=== PATIENT | male | born 1950 | race Caucasian/White ===

== ENCOUNTER 2018-03-02 19:50 | Emergency (ER) | payer MEDICARE, OTHER ==
[2018-03-02] MEDS ORDERED: SODIUM CHLORIDE 0.9% 1000ML 1,000 ML IVS ONE (19:51)
[2018-03-02] MEDS ORDERED: SODIUM CHLORIDE 0.9% 1000ML 1,000 ML IVS PRN (19:57)
[2018-03-02] MEDS ORDERED: SODIUM CHLORIDE 0.9% (FLUSH) 10 ML SYG IV PRN (19:57)
[2018-03-02] MEDS ORDERED: MIDAZOLAM INJ 5 MG/5 ML VIAL ONE ×2 (20:00→23:05)
[2018-03-02] MEDS ORDERED: WATER FOR INJ 10 ML VIAL INJ ONE (20:00)
[2018-03-02] MEDS ORDERED: VECURONIUM BROMIDE 10 MG VIAL IV ONE (20:00)
[2018-03-02] MEDS ORDERED: FUROSEMIDE INJ 100 MG/10 ML VIAL IV ONE (20:05)
--- NOTE | 2018-03-02 20:09 | ED.PDOC ---
History of Present Illness - General Chief Complaint: Respiratory Problem Stated Complaint: shortness of breath, hypoxic Time Seen by Provider: 03/02/18 20:05 Source: patient, family Exam Limitations: clinical condition - History of Present Illness Initial Comments: patient comes in today via EMS for shortness of breath and hypoxia. Patient recently moved here from [facility] to live with his son. His 2 sons that are accompanying him state that he does not normally tell them much about his medical condition but they know that he was not taking care of himself. On Tuesday his son picked him up and noticed that he was acting a little strange but did not think much more than that. He had some cough and seemed to have a cold but otherwise was not complaining of anything. When asked the patient states he is not having any trouble breathing he had a urinary accident because his son took him to place where he had to wait to be able to go to the bathroom. Son states that he actually taken to the urgent care clinic just for a checkup knowing that he had medical problems and was found to be severely hypoxic. On room air here in emergency room patient was 79% on transfer from the stretcher to the bed. Patient is very confused and does not answer questions directly. He does state in the past he's had diabetes, heart disease , myocardial infarctions, and atrial fibrillation. He continues to state that he does not have any acute problems. Timing/Duration: days - 6 Severity: severe Activities at Onset: rest Improving Factors: rest Worsening Factors: movement Associated Symptoms: cough, edema Allergies/Adverse Reactions: Allergies NO KNOWN ALLERGY Allergy (Verified 03/02/18 19:57) Review of Systems - Review of Systems Review of Systems: 03/02/18 20:09 via systems is primarily per her son's as per HPI patient this time is altered and confused Constitutional: Denies: chills, fever EENTM: Denies: ear pain, nose pain, throat pain Respiratory: States: cough, orthopnea, short of breath. Denies: wheezing Cardiology: States: edema. Denies: chest pain, palpitations Gastrointestinal/Abdominal: States: diarrhea. Denies: abdominal pain, nausea, vomiting Genitourinary: States: frequency. Denies: dysuria Musculoskeletal: States: no symptoms reported Skin: States: no symptoms reported Neurological: States: see HPI, anxiety Past Medical History (General) - Patient Medical History Hx Cardiac Disorders: Yes Hx Congestive Heart Failure: No Hx Hypertension: Yes Hx Diabetes: Yes Family Medical History - Family History Father Family History: Unknown Physical Exam - Physical Exam General Appearance: Anxious, Obvious distress Eyes, Ears, Nose, Throat Exam: PERRL/EOMI, normal ENT inspection, TMs normal Neck: non-tender, full range of motion, supple, normal inspection Respiratory: decreased breath sounds, crackles - at bilateral bases Cardiovascular/Chest: regular rate, rhythm, systolic murmur Gastrointestinal/Abdominal: normal bowel sounds, non tender, soft, distended Extremity: swelling - 3+ pitting edema to mid thigh Neurologic: no motor/sensory deficits, alert Skin Exam: normal color Progress - Progress Progress: 03/02/18 20:55 03/02/18 19:57 Sodium Chloride 0.9% (Flush) [Saline Flush Syringe] 10 ml IV PRN PRN Sodium Chloride 0.9% 1000ML [Ns 1000 ml] 1,000 ml IVS .QD 03/02/18 19:58 IV Care:Saline Lock per Protoc QSHIFT Telemetry .ONCE EKG Assessment ONCE Pulse Oximetry Assessment DAILY 03/02/18 20:00 EKG STAT 03/02/18 20:10 BiPAP/CPAP Treatment DAILY 03/02/18 20:11 Catheter:Bruce QSHIFT Intake/Output Q2HX2,Q4HX2,QSHIFT 03/02/18 20:21 Piperacillin/Tazobactam [Zosyn] 3.375 gm Sodium Chloride 0.9% 100Ml [NS (NACL 0.9%) 100ml] 100 ml IVPB ONCE 03/02/18 20:35 URINALYSIS Stat 03/02/18 20:52 ABG [Arterial Blood Gas] Stat 03/02/18 21:00 Nystatin Powder 1 applic TOP QID 03/03/18 09:00 Pulse Ox Daily Laboratory Results WBC 9.8 K/mm3 (4.8-10.8) 03/02/18 20:00 RBC 5.36 M/mm3 (4.70-6.10) 03/02/18 20:00 Hgb 12.4 gm/dL (14.0-18.0) L 03/02/18 20:00 Hct 41.3 % (42.0-52.0) L 03/02/18 20:00 MCV 77.1 fl (80.0-94.0) L 03/02/18 20:00 MCH 23.1 pg (27.0-31.0) L 03/02/18 20:00 MCHC 30.1 g/dL (33.0-37.0) L 03/02/18 20:00 RDW 19.5 % (11.5-14.5) H 03/02/18 20:00 Plt Count 277 K/mm3 (130-400) 03/02/18 20:00 MPV 7.8 fl (7.40-10.4) 03/02/18 20:00 Absolute Neuts (auto) 8.10 K/uL (1.8-6.8) H 03/02/18 20:00 Absolute Lymphs (auto) 0.80 K/uL (1.0-3.4) L 03/02/18 20:00 Absolute Monos (auto) 0.90 K/uL (0.2-0.8) H 03/02/18 20:00 Absolute Eos (auto) 0.00 K/uL (0.0-0.4) 03/02/18 20:00 Absolute Basos (auto) 0.00 K/uL (0.0-0.1) 03/02/18 20:00 Neutrophils % 82.6 % (42.0-78.0) H 03/02/18 20:00 Lymphocytes % 8.2 % (20.0-50.0) L 03/02/18 20:00 Monocytes % 8.7 % (2.0-9.0) 03/02/18 20:00 Eosinophils % 0.1 % (1.0-5.0) L 03/02/18 20:00 Basophils % 0.4 % (0.0-2.0) 03/02/18 20:00 Normal RBC Morphology 4+aniso 3+microcytosis 3+hypochromia 03/02/18 20:00 Normal RBC Morphology 4+aniso 3+microcytosis 3+hypochromia 03/02/18 20:00 Normal RBC Morphology 4+aniso 3+microcytosis 3+hypochromia 03/02/18 20:00 PT 20.4 SECONDS (9.4-12.5) H* 03/02/18 20:00 INR 1.770 03/02/18 20:00 PTT (SP) 30.0 SECONDS (25.1-36.5) 03/02/18 20:00 D-Dimer, Quantitative 313 ng/mL (0-230) H* 03/02/18 20:00 pCO2 74 mmHg (35-48) H 03/02/18 20:00 pO2 88 mmHg (83-108) 03/02/18 20:00 HCO3 37.3 mmol/L 03/02/18 20:00 ABG pH 7.320 (7.35-7.45) L 03/02/18 20:00 ABG O2 Saturation 97.0 % (95.0-99.0) 03/02/18 20:00 ABG Base Excess 9.1 mmol/L 03/02/18 20:00 ABG Deoxyhemoglobin 2.9 % (0.0-5.0) 03/02/18 20:00 Oxyhemoglobin % 94.3 % (94.0-98.0) 03/02/18 20:00 Carboxyhemoglobin % 1.7 % (0.5-1.5) H 03/02/18 20:00 Methemoglobin % Sat 1.1 % (0.0-1.5) 03/02/18 20:00 Calc Total Hemoglobin 11.7 g/dL (13.5-17.5) L 03/02/18 20:00 Sodium 140 mmol/L (135-145) 03/02/18 20:00 Potassium 4.9 mmol/L (3.6-5.0) 03/02/18 20:00 Chloride 94 mmol/L (101-111) L 03/02/18 20:00 Carbon Dioxide 36 mmol/L (21-31) H 03/02/18 20:00 Anion Gap 14.9 (12-18) 03/02/18 20:00 BUN 95 mg/dL (7-18) H 03/02/18 20:00 Creatinine 2.09 mg/dL (0.6-1.3) H 03/02/18 20:00 BUN/Creatinine Ratio 45.5 (10-20) H 03/02/18 20:00 Random Glucose 146 mg/dL (70-105) H 03/02/18 20:00 Serum Osmolality 311.4 mOsm/L (275-295) H 03/02/18 20:00 Lactic Acid 1.6 mmol/L (0.5-2.2) 03/02/18 20:00 Calcium 8.7 mg/dL (8.4-10.2) 03/02/18 20:00 Total Bilirubin 0.8 mg/dL (0.2-1.0) 03/02/18 20:00 AST 29 IU/L (10-42) 03/02/18 20:00 ALT 68 IU/L (10-60) H 03/02/18 20:00 Alkaline Phosphatase 76 IU/L (42-121) 03/02/18 20:00 Creatine Kinase 111 IU/L (38-174) 03/02/18 20:00 CK-MB (CK-2) 3.4 ng/mL (0.0-4.4) 03/02/18 20:00 CK-MB (CK-2) % Not Reportable 03/02/18 20:00 Troponin I 0.14 ng/mL (0.01-0.05) H* 03/02/18 20:00 B-Natriuretic Peptide 1510.0 pg/ml (0-100) H* 03/02/18 20:00 Serum Total Protein 6.9 gm/dL (6.4-8.2) 03/02/18 20:00 Albumin 3.5 g/dl (3.2-5.5) 03/02/18 20:00 Globulin 3.4 gm/dL (2.3-3.5) 03/02/18 20:00 Albumin/Globulin Ratio 1.0 (1.1-1.9) L 03/02/18 20:00 03/02/18 21:56 Patient is tired and sleepy. Repeat ABG is 7.32/77.8/85/38.8. Discussed with patient and family that airway needs to be secured prior to transfer. Have called for surgery to stand by and anesthesia for assistance for possible difficult airway. Patient to be transferred after airway secured. 03/02/18 22:26 with surgery on standby for possible need for surgical airway, NAYELY Staton was able to intubate successfully on first try with [employer] vision device with a 7.5 ETT . It was secured at 21 at the lip with good color change, air flow on both sides of the chest that were equal, condensation in the tube and verification with chest x-ray. Transfer was then called for for need for ICU care on a ventilator. She was given succinylcholine for intubation and propofol. - Results/Orders Results/Orders: ABG # 1 : ph 7.32/pCO2 74.4/pO2 88/HCO3 37.3 on 3 L NC at arrival - EKG/XRAY/CT EKG: Sinus Comments: q waves in anterior leads, normal axis, no ST elevation or depression XRAY: chest Xray Comments: L consolidation with probable pleural effusion Procedures - Intubation Time of Intubation: 22:14 - by NAYELY Staton Intubation Method: orotracheal Tube Size (cm): 7.5 Medications: Succinylcholine Breath Sounds after Intubation: equal Intubation Complications: no complications Post Intubation Xray: Yes - good placement Departure - Departure Clinical Impression: Pneumonia Qualifiers: Pneumonia type: due to unspecified organism Laterality: left Lung location: lower lobe of lung Qualified Code(s): J18.1 - Lobar pneumonia, unspecified organism Congestive heart failure Qualifiers: Congestive heart failure type: unspecified congestive heart failure type Congestive heart failure chronicity: acute Qualified Code(s): I50.9 - Heart failure, unspecified Disposition: Transfer to Hospital Condition: Fair Departure Forms: ED Discharge - Pt. Copy, Patient Portal Self Enrollment Comments: Accepted by Dr. Contreras Villanueva at 2236 at [facility]
[2018-03-02] MEDS ORDERED: FUROSEMIDE INJ 40 MG/4 ML VIAL IV ONE (20:12)
--- NOTE | 2018-03-02 20:19 | RAD ---
EXAM DESCRIPTION: Chest,1 View CLINICAL HISTORY: shortness of breath COMPARISON: None. FINDINGS: Cardiac silhouette is obscured but probably enlarged. There is consolidation at the left lung base with a probable left pleural effusion. Detail is limited.. Right lung is clear. IMPRESSION: Left lung consolidation. Probable cardiomegaly. Electronically signed by: Jeremy Arreguin 03/02/2018 8:18 PM CDT
[2018-03-02] MEDS ORDERED: PIPERACILLIN/TAZOBACTAM 3.375 GM in SODIUM CHLORIDE 0.9% 100ML 100 ML IVPB ONE (20:21)
[2018-03-02] MEDS ORDERED: PIPERACILLIN/TAZOBACTAM 3.375 GM VIAL IVPB ONE (20:58)
[2018-03-02] MEDS ORDERED: SODIUM CHLORIDE 0.9% 100ML 100 ML IVPB ONE (20:59)
[2018-03-02] MEDS ORDERED: NYSTATIN POWDER 15GM BTTL TOP SCH (21:00)
[2018-03-02] MEDS ORDERED: ENOXAPARIN SODIUM 100 MG/ML SYG SUBCU ONE (21:19)
[2018-03-02] MEDS ORDERED: SUCCINYLCHOLINE CHLORIDE 200 MG/10 ML VIAL ONE (21:49)
[2018-03-02 22:01] VITALS: TEMP 98.5; O2SAT 97
[2018-03-02] MEDS ORDERED: PROPOFOL 200 MG/20 ML VIAL IV ONE (22:01)
[2018-03-02] MEDS ORDERED: MIDAZOLAM INJ 5 MG/5 ML VIAL IV ONE (22:50)
--- NOTE | 2018-03-02 22:57 | RAD ---
EXAM DESCRIPTION: Chest,1 View CLINICAL HISTORY: verify intubation placement COMPARISON: 03/02/2018 at 2002 hours FINDINGS: ET tube tip is at T3. Consolidation is again seen at the left lung base but aeration of both lungs is mildly improved. Heart remains enlarged. IMPRESSION: ET tube tip at T3. Electronically signed by: Jeremy Arreguin 03/02/2018 10:56 PM CDT
[2018-03-02 23:28] VITALS: BP 119/70
--- NOTE | 2018-03-03 10:03 | CONS ---
DATE OF CONSULTATION: 03/02/18 HISTORY OF PRESENT ILLNESS: The patient is a 67-year-old male who has just recently moved here from [place] to live with his son. He was brought in by ambulance with shortness of breath and hypoxia on examination. He does not really complain of chest pain, but he does complain of a cough and shortness of breath. PAST MEDICAL HISTORY: The past medical history is quite minimal, but he does know that he has: 1. Heart disease. 2. Diabetes. 3. History of atrial fibrillation and myocardial infarctions in the past. 4. Hypertension. CURRENT MEDICATIONS: Unknown. ALLERGIES: NO KNOWN DRUG ALLERGIES. SOCIAL HISTORY: The patient's son denies a history of smoking. REVIEW OF SYSTEMS: Unremarkable except for shortness of breath and cough. PHYSICAL EXAMINATION: GENERAL: The patient is awake with BiPAP in place. He seems to be resting easily at this point. NECK: He has quite a short neck with a significant amount of subcutaneous fat. His larynx is palpable, as are his clavicles and supraclavicular notch. LUNGS: He has decreased breath sounds, especially on the left. HEART: Regular rate. ABDOMEN: Appears benign. RADIOLOGY: Chest x-ray reveals a consolidation in the left lung base. LABORATORY: Normal white count with hemoglobin 12.4, 82% neutrophils and 237 platelets. BNP was quite elevated at 1510. Troponin I 0.14. CK-MB 3.4. Liver functions elevated with ALT 68. Potassium 4.9, creatinine 2.09, glucose 146. ASSESSMENT: 1. Dyspnea and hypoxia with possible consolidation in the left lung base. PLAN: I will prepare a tracheostomy tray for possible emergent tracheostomy if intubation by Anesthesia fails. #[id number] [facility]
== END 2018-03-02 23:15 | disposition short-term general hospital (02) ==
LOC: ER 19:50
DX: J18.1 Lobar pneumonia, unspecified organism (principal); I11.0 Hypertensive heart disease with heart failure; I50.9 Heart failure, unspecified; E11.9 Type 2 diabetes mellitus without complications; I25.2 Old myocardial infarction; I48.91 Unspecified atrial fibrillation; R41.0 Disorientation, unspecified

== ENCOUNTER → 2018-03-22 | Outpatient (CLI) | payer OTHER | LOC: YCFC.O 09:34 | DX: E11.9 Type 2 diabetes mellitus without complications (principal); I10 Essential (primary) hypertension ==

== ENCOUNTER 2018-04-24 12:53 | Emergency (ER) | payer OTHER ==
--- NOTE | 2018-04-24 13:13 | ED.PDOC ---
History of Present Illness - General Chief Complaint: General Stated Complaint: diaphoresis, dizziness Time Seen by Provider: 04/24/18 13:05 Source: patient Exam Limitations: no limitations Additional Information: HAS HH DUE TO RECENT HOSPITALIZATION IN [place] FOR PNEUMONIA AND HYPOXEMIA. WHILE NURSE WAS THERE TODAY PT BECAME WEAK, DIZZY AND DIAPHORETIC. WAS NOTED TO BE HYPOTENSIVE 60'S (S). WAS SEEN HERE FOR EVALUATION. - History of Present Illness Timing/Duration: unsure Severity: moderate Worsening Factors: nothing Associated Symptoms: diaphoresis, weakness Allergies/Adverse Reactions: Allergies NO KNOWN ALLERGY Allergy (Verified 03/02/18 19:57) Home Medications: Ambulatory Orders Levofloxacin [Levaquin] 750 mg PO DAILY #5 tablet 04/24/18 Review of Systems - Review of Systems Constitutional: Denies: chills, fever EENTM: States: no symptoms reported Respiratory: States: cough, other - COUGH MUCH BETTER AND CURRENTLY NON PRODUCTIVE. Denies: short of breath, wheezing Cardiology: Denies: chest pain, palpitations, syncope Gastrointestinal/Abdominal: Denies: abdominal pain, nausea, vomiting Genitourinary: States: no symptoms reported Musculoskeletal: States: no symptoms reported Skin: Denies: change in color Neurological: Denies: numbness, tingling, weakness Endocrine: States: no symptoms reported Hematologic/Lymphatic: States: no symptoms reported Past Medical History (General) - Patient Medical History Hx Asthma: No Hx Cardiac Disorders: Yes - AFIB Hx Congestive Heart Failure: No Hx Hypertension: Yes Hx Diabetes: Yes Surgical History: appendectomy - Vaccination History Hx Tetanus, Diphtheria Vaccination: Yes - Social History Hx Tobacco Use: No Hx Alcohol Use: No Family Medical History - Family History Father Family History: Unknown Physical Exam - Physical Exam General Appearance: Alert, No apparent distress, Obese Eye Exam: bilateral normal Ears, Nose, Throat: hearing grossly normal, normal ENT inspection Neck: non-tender, full range of motion, supple Respiratory: lungs clear, normal breath sounds Cardiovascular/Chest: regular rate, rhythm, no murmur Gastrointestinal/Abdominal: non tender, soft, no organomegaly Back Exam: normal inspection, no CVA tenderness, no vertebral tenderness Extremity: normal range of motion, non-tender, normal inspection Neurologic: alert, normal mood/affect Skin Exam: normal color, warm/dry, diaphoresis - SLIGHT Lymphatic: no adenopathy Progress - Progress Progress: 04/24/18 17:16 PT STABLE BUT WITH PERSISTENT LARGE L SIDED INFILTRATE. WILL GET CT. 04/24/18 20:26 ADVISED PT WITH HYPOTENSION, NO IMPROVEMENT OF INFILTRATE, AND ELEVATED LACTIC ACID HE SHOULD STAY. HE DECLINES STATES HE HAS THINGS AT HOME HE HAS TO DO. RISK VS BENEFITS OF LEAVING INCLUDING DISABILITY AND DISCUSSED, PT UNDERSTANDS AND ELECTED TO LEAVE. ADVISED TO F/U WITH DR RUFF IN AM, RETURN FOR PROBLEMS. WILL COVER WITH LEVAQUIN - EKG/XRAY/CT XRAY: chest - LARGE L SIDED INFILTRATE SIMILAR TO 02/22 CT: PULMONARY NODULE, SCARRING, Departure - Departure Clinical Impression: Acute kidney injury Pneumonia Qualifiers: Pneumonia type: due to unspecified organism Laterality: left Lung location: lower lobe of lung Qualified Code(s): J18.1 - Lobar pneumonia, unspecified organism Hypotension Qualifiers: Hypotension type: other hypotension type Qualified Code(s): I95.89 - Other hypotension Time of Disposition: 20:30 Disposition: Discharge to Home or Self Care Condition: Fair Departure Forms: ED Discharge - Pt. Copy, Patient Portal Self Enrollment Instructions: Pneumonia-Adult Referrals: Jas Ruff MD [Primary Care Provider] - 1-2 Weeks Prescriptions: Levofloxacin [Levaquin] 750 mg PO DAILY #5 tablet Home Medications: Ambulatory Orders Levofloxacin [Levaquin] 750 mg PO DAILY #5 tablet 04/24/18
--- NOTE | 2018-04-24 16:23 | RAD ---
EXAM DESCRIPTION: Chest,1 View CLINICAL HISTORY: HYPOTENSION, HX PNEUMONIA COMPARISON: 02 March 2018 TECHNIQUE: AP portable chest FINDINGS: Right chest is clear. The heart appears within range of normal. Persistent left basilar infiltrate is observed. IMPRESSION: A persistent left basilar infiltrate is observed. Further evaluation of this patient with CT might be considered. Electronically signed by: Cuauhtemoc Michel MD 04/24/2018 4:22 PM CDT
[2018-04-24 16:24] VITALS: O2SAT 95
--- NOTE | 2018-04-24 19:34 | CT ---
PROCEDURE: Chest w/o Contrast CLINICAL HISTORY: 68 years Male SHORTNESS OF BREATH COMPARISON: None. TECHNIQUE: Contiguous axial images obtained through the chest without IV contrast. Reformatted images obtained. This exam was performed according to our department optimization program which includes automated exposure control, adjustment of the mA and/or kv according to patient size and/or use of iterative reconstruction technique. FINDINGS: There are three nonobstructive right renal stones measuring up to 2 mm diameter. Bilateral exophytic cysts involve the kidneys and are incompletely imaged. There is a 2 mm nonobstructive left renal stone. There is mild enlargement of mediastinal lymph nodes. There is mild thickening of the right posterior pleura. There is atelectasis and scar involving the left lung, with irregular thickening of the left pleura. Trace pericardial fluid is present. There is a nodule measuring 5 mm at the left posterior lung base. The heart is mildly enlarged. No other acute abnormalities. IMPRESSION: No clear etiology for acute symptoms. Electronically signed by: Jeremy Arreguin 04/24/2018 7:32 PM CDT
[2018-04-24] MEDS ORDERED: levoFLOXacin 750MG IV 750 MG in PREMIX BAG 1 BAG IVPB ONE (20:13)
[2018-04-24 22:01] VITALS: BP 130/86; TEMP 98.2
== END 2018-04-24 22:02 | disposition home or self-care (01) ==
LOC: ER 12:53
DX: J18.1 Lobar pneumonia, unspecified organism (principal); I95.89 Other hypotension; N17.9 Acute kidney failure, unspecified; R42 Dizziness and giddiness; I48.91 Unspecified atrial fibrillation; I10 Essential (primary) hypertension; E11.9 Type 2 diabetes mellitus without complications
CPT/HCPCS: 36415; 71045; 71250; 80053; 83605; 85025; 93005; J1956

== ENCOUNTER → 2018-04-24 | Outpatient (CLI) | payer OTHER | LOC: YCFC.O 13:11 | DX: I11.0 Hypertensive heart disease with heart failure (principal); I50.32 Chronic diastolic (congestive) heart failure; I48.0 Paroxysmal atrial fibrillation ==

== ENCOUNTER → 2018-07-06 | Outpatient (CLI) | payer OTHER | LOC: BFHH 10:17 | PROVIDERS: ATTEND Family Medicine | DX: I11.0 Hypertensive heart disease with heart failure (principal); I50.32 Chronic diastolic (congestive) heart failure; E11.21 Type 2 diabetes mellitus with diabetic nephropathy; D50.9 Iron deficiency anemia, unspecified ==

== ENCOUNTER → 2018-07-11 | Outpatient (CLI) | payer OTHER | LOC: GMAL 19:26 | PROVIDERS: ATTEND Family Medicine | DX: D50.9 Iron deficiency anemia, unspecified (principal) ==

== ENCOUNTER → 2018-09-04 | Outpatient (CLI) | payer OTHER | LOC: GMAL 12:51 | PROVIDERS: ATTEND Family Medicine | DX: D50.8 Other iron deficiency anemias (principal) ==

== ENCOUNTER 2018-10-10 09:56 | Emergency (ER) | payer OTHER ==
--- NOTE | 2018-10-10 10:13 | ED.PDOC ---
History of Present Illness - General Stated Complaint: CHEST TIGHTNESS Time Seen by Provider: 10/10/18 10:09 Source: patient, EMS notes reviewed Additional Information: 68 YEAR OLD WHITE MALE [place] VET BROUGHT HERE FROM HOME FOR EVALUATION OF CHEST TIGHTNESS AND PALPITATIONS HE HAS BEEN DIAGNOSED WITH ATRIAL FIBRILLATION 4 YEARS AGO HE IS ON WARFARIN METOPROLOL HE HAS BEEN COMPLIANT WITH HIS MEDS HIS PCP IS DR QUEEN WHEN EMS ARRIVED HIS VENTRICULAR RATE WAS 150 -200 HE WAS GIVEN 20 MG OF CARDIZEM IV PRIOR TO ARRIVAL HE NOW HAS NO CHEST TIGHTNESS NO PALPITATIONS NO SHORTNESS OF BREATH AT THE TIME OF EXAM - History of Present Illness Timing/Duration: 1 hour Improving Factors: nothing Worsening Factors: nothing Associated Symptoms: chest pain Allergies/Adverse Reactions: Allergies NO KNOWN ALLERGY Allergy (Verified 03/02/18 19:57) Home Medications: Ambulatory Orders Aspirin [Aspirin Adult Low Dose] 81 mg PO DAILY 10/10/18 Buspar 10/10/18 Hydrochlorothiazide 10/10/18 Magnesium 10/10/18 Metformin HCl 1,000 mg PO BID 10/10/18 Metoprolol Tartrate 100 mg PO BID 10/10/18 Multiple Vitamins W/ Minerals [Multivitamin Adults] 1 tab PO DAILY 10/10/18 Omeprazole Magnesium [Prilosec Otc] 20 mg PO DAILY 10/10/18 Potassium 2 each PO DAILY 10/10/18 Review of Systems - Review of Systems Constitutional: States: no symptoms reported EENTM: States: no symptoms reported Respiratory: States: no symptoms reported Cardiology: States: see HPI Gastrointestinal/Abdominal: States: no symptoms reported Genitourinary: States: no symptoms reported Musculoskeletal: States: no symptoms reported Skin: States: no symptoms reported Neurological: States: no symptoms reported Endocrine: States: no symptoms reported Past Medical History (General) - Patient Medical History Hx Asthma: No Hx Cardiac Disorders: Yes Hx Congestive Heart Failure: No Hx Hypertension: Yes Hx Diabetes: Yes - Vaccination History Hx Tetanus, Diphtheria Vaccination: Yes - Social History Hx Tobacco Use: No Hx Alcohol Use: No Family Medical History - Family History Father Family History: Unknown Physical Exam - Physical Exam General Appearance: Alert, Anxious, Comfortable Eye Exam: bilateral normal Ears, Nose, Throat: hearing grossly normal, normal ENT inspection, normal pharynx Neck: non-tender, full range of motion, supple Respiratory: chest non-tender, lungs clear, normal breath sounds, no respiratory distress, no accessory muscle use Cardiovascular/Chest: normal peripheral pulses, regular rate, rhythm, no edema, no gallop Peripheral Pulses: radial,right: 2+ Gastrointestinal/Abdominal: normal bowel sounds, non tender, soft, no organomegaly, no pulsatile mass Back Exam: normal inspection, no CVA tenderness, no vertebral tenderness Neurologic: drop hammer setter up II-XII nml as tested, no motor/sensory deficits, alert, normal mood/affect, oriented x 3 Progress - Results/Orders Results/Orders: Laboratory Tests 10/10/18 10/10/18 10/10/18 10:15 10:17 10:17 WBC 8.5 RBC 5.66 Hgb 16.8 Hct 51.6 MCV 91.1 MCH 29.6 MCHC 32.5 L RDW 17.3 H Plt Count 194 MPV 8.6 Absolute Neuts (auto) 4.60 Absolute Lymphs (auto) 3.00 Absolute Monos (auto) 0.70 Absolute Eos (auto) 0.20 Absolute Basos (auto) 0.10 Neutrophils % 53.7 Lymphocytes % 34.9 Monocytes % 8.1 Eosinophils % 2.6 Basophils % 0.7 PT 24.8 H INR 2.50 H PTT (SP) 43.2 H Sodium 143 Potassium 3.5 L Chloride 99 L Carbon Dioxide 30 Anion Gap 17.5 BUN 33 H Creatinine 1.44 H BUN/Creatinine Ratio 22.9 H Random Glucose 203 H Serum Osmolality 298.0 H Calcium 9.9 Total Bilirubin 0.5 AST 33 ALT 41 Alkaline Phosphatase 79 Creatine Kinase CK-MB (CK-2) CK-MB (CK-2) % Troponin I Serum Total Protein 8.3 H Albumin 4.5 Globulin 3.8 H Albumin/Globulin Ratio 1.2 10/10/18 10:55 WBC RBC Hgb Hct MCV MCH MCHC RDW Plt Count MPV Absolute Neuts (auto) Absolute Lymphs (auto) Absolute Monos (auto) Absolute Eos (auto) Absolute Basos (auto) Neutrophils % Lymphocytes % Monocytes % Eosinophils % Basophils % PT INR PTT (SP) Sodium Potassium Chloride Carbon Dioxide Anion Gap BUN Creatinine BUN/Creatinine Ratio Random Glucose Serum Osmolality Calcium Total Bilirubin AST ALT Alkaline Phosphatase Creatine Kinase 103 CK-MB (CK-2) 3.8 CK-MB (CK-2) % Not Reportable Troponin I < 0.02 Serum Total Protein Albumin Globulin Albumin/Globulin Ratio 1 00 PM PT REMAINED COMFORTABLE WITHOUT ANY CHEST PAIN OR PALPITATIONS HIS HR STAYED AROUND 80-99 THROUGHOUT THE COURSE OF HIS STAY PATIENT WANTS TO GO ON HOME AND FOLLOW UP WITH PCP HE SHARED LOT OF HIS ANXIETY AND PTSD PROBLEMS FROM [place] I RECOMMENDED TO SEE A COUNSELLOR TO RETURN HERE IF HE DEVELOPS ANY CHEST PAIN - EKG/XRAY/CT Comments: ATRIAL FIBRILLATION OCCATIONAL PVCs NORMAL AXIS NO ACUTE CT INJURY OT [facility] Departure - Departure Clinical Impression: Chest pain, Hypertensive heart disease Time of Disposition: 13:13 Disposition: Discharge to Home or Self Care Condition: Good Diet: resume usual diet Referrals: GINNY QUEEN MD [facility] REF III [Primary Care Provider] - 1-2 Weeks Home Medications: Ambulatory Orders Aspirin [Aspirin Adult Low Dose] 81 mg PO DAILY 10/10/18 Buspar 10/10/18 Hydrochlorothiazide 10/10/18 Magnesium 10/10/18 Metformin HCl 1,000 mg PO BID 10/10/18 Metoprolol Tartrate 100 mg PO BID 10/10/18 Multiple Vitamins W/ Minerals [Multivitamin Adults] 1 tab PO DAILY 10/10/18 Omeprazole Magnesium [Prilosec Otc] 20 mg PO DAILY 10/10/18 Potassium 2 each PO DAILY 10/10/18 Additional Instructions: FOLLOW UP WITH YOUR
[2018-10-10 10:15] VITALS: TEMP 97.1
--- NOTE | 2018-10-10 10:50 | RAD ---
EXAM DESCRIPTION: Chest,1 View CLINICAL HISTORY: CHEST PAIN FINDINGS/ IMPRESSION: Comparison 04/24/2018 Cardiomegaly. Atherosclerotic aorta. Continued elevation of the left hemidiaphragm with a band of subsegmental atelectasis. Left costophrenic angle not well seen, compatible with pleural thickening seen on previous CT No pulmonary edema or diagnostic acute infiltrate Electronically signed by: Henry Davis MD 10/10/2018 10:48 AM [facility]
[2018-10-10 13:51] VITALS: BP 124/86; O2SAT 98
== END 2018-10-10 13:51 | disposition home or self-care (01) ==
LOC: ER 09:56
DX: R07.89 Other chest pain (principal); I11.9 Hypertensive heart disease without heart failure; I48.91 Unspecified atrial fibrillation; E11.9 Type 2 diabetes mellitus without complications; Z79.01 Long term (current) use of anticoagulants; Z79.82 Long term (current) use of aspirin; Z79.899 Other long term (current) drug therapy

== ENCOUNTER 2019-03-15 10:04 | Emergency (ER) | payer OTHER ==
[2019-03-15] MEDS ORDERED: ASPIRIN TABLET 325 MG TAB PO ONE (10:12)
[2019-03-15] MEDS ORDERED: METOPROLOL TARTRATE 50 MG TAB PO ONE (10:12)
[2019-03-15] MEDS ORDERED: MAGNESIUM SULFATE PREMIX 2GM 2 GM in PREMIX BAG 1 BAG IVPB ONE (10:53)
[2019-03-15] MEDS ORDERED: MAGNESIUM SULFATE PREMIX 2GM 50 ML IVPB ONE (10:56)
--- NOTE | 2019-03-15 11:00 | RAD ---
EXAM DESCRIPTION: Chest,1 View CLINICAL HISTORY: chest pain, afib c rvr COMPARISON: October 10, 2018 IMPRESSION: Single AP portable upright view of the chest shows enlargement of the cardiomediastinal silhouette without pulmonary vascular congestion. Lungs are mildly hypoaerated with elevation of the left hemidiaphragm. Linear increased interstitial thickening in the left lung base suggesting subsegmental atelectasis. Indistinctness of the left costophrenic angle is again seen consistent with pleural thickening seen on prior CT exam. No new findings. Electronically signed by: Henrique Gilbert MD 03/15/2019 10:58 AM CDT
[2019-03-15] MEDS ORDERED: DIGOXIN 0.25 MG TAB PO ONE (11:31)
--- NOTE | 2019-03-15 11:51 | ED.PDOC ---
History of Present Illness - General Chief Complaint: Chest Pain/NV Stated Complaint: Chest discomfort Time Seen by Provider: 03/15/19 10:04 Source: patient Exam Limitations: no limitations - History of Present Illness Initial Comments: The patient's 68-year-old male presenting to the emergency room secondary to some chest discomfortthat started around 6:00 this morning. Mild pressure. No nausea vomiting or diarrhea. No syncope. He does have a long- standing history of atrial fibrillation with intermittent rapid ventricular rate. He does take metoprolol for it twice daily but has not had his dose yet today. No history of any significant coronary artery disease.he has had much more severe symptoms with A. fib with RVR in the past. He is not feeling the pa lpitations currently. He reports many of his other episodes of heart rates up in the 180s to 200s.he does have chronic reflux and chronic anxiety which do often give him similar symptoms. Timing/Duration: 4-6 hours Severity: mild Improving Factors: nothing Worsening Factors: nothing Allergies/Adverse Reactions: Allergies NO KNOWN ALLERGY Allergy (Verified 03/02/18 19:57) Home Medications: Ambulatory Orders Aspirin [Aspirin Adult Low Dose] 81 mg PO DAILY 10/10/18 Metoprolol Tartrate 100 mg PO BID 10/10/18 Multiple Vitamins W/ Minerals [Multivitamin Adults] 1 tab PO DAILY 10/10/18 Potassium 2 each PO DAILY 10/10/18 Amlodipine Besylate [Norvasc] 2.5 mg PO DAILY 03/15/19 Buspirone HCl 10 mg PO BID 03/15/19 Digoxin 0.125 mg PO DAILY #30 tab 03/15/19 Doxazosin Mesylate 2 mg PO DAILY 03/15/19 Esomeprazole Magnesium 20 mg PO DAILY 03/15/19 Ferrous Sulfate [Iron] 65 mg PO DAILY 03/15/19 Hydrochlorothiazide 25 mg PO DAILY 03/15/19 Losartan Potassium 100 mg PO DAILY 03/15/19 Magnesium 250 mg PO DAILY 03/15/19 Metformin HCl 1,000 mg PO BID 03/15/19 Warfarin Sodium 5 mg PO SUTUTHSA 03/15/19 Warfarin Sodium 6 mg PO MOWEFR 03/15/19 Review of Systems - Review of Systems Constitutional: States: no symptoms reported EENTM: States: no symptoms reported Respiratory: States: no symptoms reported Cardiology: States: chest pain - rated a 3 or 4 out of 10 Gastrointestinal/Abdominal: States: no symptoms reported Genitourinary: States: no symptoms reported Musculoskeletal: States: no symptoms reported Skin: States: no symptoms reported Neurological: States: anxiety Endocrine: States: no symptoms reported All other Systems: No Change from Baseline Past Medical History (General) - Patient Medical History Hx Stroke: No Hx Asthma: No Hx Cardiac Disorders: Yes - Atrial fib Hx Congestive Heart Failure: No Hx Hypertension: Yes Hx Diabetes: Yes Hx Gastroesophageal Reflux: Yes Hx MRSA: No Surgical History: appendectomy - Vaccination History Hx Tetanus, Diphtheria Vaccination: No Hx Influenza Vaccination: No Hx Pneumococcal Vaccination: No - Social History Hx Tobacco Use: No Hx Alcohol Use: No Family Medical History - Family History Father Family History: Unknown Living Status: Physical Exam - Physical Exam General Appearance: Alert, Anxious, No apparent distress Eye Exam: bilateral normal Ears, Nose, Throat: normal ENT inspection, normal pharynx Neck: full range of motion, supple Respiratory: lungs clear, normal breath sounds, no respiratory distress, no accessory muscle use Cardiovascular/Chest: normal peripheral pulses, no edema, tachycardia, irregularly irregular Peripheral Pulses: radial,right: 2+, radial,left: 2+, dorsalis pedis,right: 2+, dorsalis pedis,left: 2+ Gastrointestinal/Abdominal: non tender, soft Rectal Exam: deferred Back Exam: normal inspection, no CVA tenderness, no vertebral tenderness Extremity: normal range of motion, non-tender, normal inspection, no pedal edema Neurologic: thiokol operator II-XII nml as tested, alert, normal mood/affect - nxious, oriented x 3 Skin Exam: normal color Comments: Vital Signs - 24 hr 03/15/19 03/15/19 10:04 10:30 Temperature 98.3 F Pulse Rate 148 H 118 H Pulse Rate [ 148 H 118 H Apical] Respiratory 24 24 Rate Blood Pressure 125/95 102/79 [Right Arm] O2 Sat by Pulse 94 L 93 L Oximetry Progress - Progress Progress: 03/15/19 11:55 the patient is a 68-year-old male presenting to the emergency room secondary to some chest discomfort and is found to be in A. fib with RVR. He is feeling much better with rate control. The patient has been offered admission for further testing and monitoring however he has deferred that at this time. He needs to continue with his metoprolol. I'm going to add digoxin 0.125 mg daily. He needs to follow-up with his primary care doctor early next week for reevaluation. He should also take his Coumadin as he has been taking it, his level was therapeutic today. Cardiac enzymes are negative at 4 hours after onset. he should discuss getting set up with a cook syrup maker with his primary care doctor as chest discomfort with tachycardia at this level could indicate some coronary stenosis that may need evaluation in the near future. ER warnings were given for any worsening. - Results/Orders Results/Orders: EKG shows A. fib with RVR at a rate of 144 bpm. Normal axis. No definitive ST or T-wave changes indicative of acute ischemia. Occasional PVCs or aberrantly conduction. Borderline R-wave progression. Chest x-ray shows no overt infiltrate orfluid overload. mild cardiomegaly. Chronic changes otherwise.No pneumothorax. Laboratory Tests 03/15/19 03/15/19 03/15/19 10:16 10:16 10:16 WBC 6.8 RBC 4.84 Hgb 14.2 Hct 43.7 MCV 90.1 MCH 29.4 MCHC 32.6 L RDW 14.5 Plt Count 188 MPV 7.7 Absolute Neuts (auto) 3.70 Absolute Lymphs (auto) 2.30 Absolute Monos (auto) 0.50 Absolute Eos (auto) 0.20 Absolute Basos (auto) 0.10 Neutrophils % 54.6 Lymphocytes % 33.8 Monocytes % 7.2 Eosinophils % 3.6 Basophils % 0.8 PT 23.5 H INR 2.37 H PTT (SP) 41.0 H Sodium 141 Potassium 3.6 Chloride 102 Carbon Dioxide 25 Anion Gap 17.6 BUN 42 H Creatinine 1.71 H BUN/Creatinine Ratio 24.6 H Random Glucose 170 H Serum Osmolality 295.7 H Calcium 8.8 Magnesium 1.6 L Total Bilirubin 0.5 AST 33 ALT 48 Alkaline Phosphatase 69 Creatine Kinase 113 CK-MB (CK-2) 3.0 CK-MB (CK-2) % 2.65 Troponin I 0.02 B-Natriuretic Peptide 77.0 Serum Total Protein 7.7 Albumin 3.9 Globulin 3.8 H Albumin/Globulin Ratio 1.0 L TSH 4.79 Departure - Departure Clinical Impression: Atrial fibrillation with rapid ventricular response, Demand ischemia Disposition: Discharge to Home or Self Care Condition: Fair Departure Forms: ED Discharge - Pt. Copy, Patient Portal Self Enrollment Instructions: Atrial Fibrillation (DC) Diet: diabetic diet Activity: increase activity as tolerated Referrals: GINNY QUEEN MD [facility] III [Primary Care Provider] - 1-5 Days Prescriptions: Digoxin 0.125 mg PO DAILY #30 tab Home Medications: Ambulatory Orders Aspirin [Aspirin Adult Low Dose] 81 mg PO DAILY 10/10/18 Metoprolol Tartrate 100 mg PO BID 10/10/18 Multiple Vitamins W/ Minerals [Multivitamin Adults] 1 tab PO DAILY 10/10/18 Potassium 2 each PO DAILY 10/10/18 Amlodipine Besylate [Norvasc] 2.5 mg PO DAILY 03/15/19 Buspirone HCl 10 mg PO BID 03/15/19 Digoxin 0.125 mg PO DAILY #30 tab 03/15/19 Doxazosin Mesylate 2 mg PO DAILY 03/15/19 Esomeprazole Magnesium 20 mg PO DAILY 03/15/19 Ferrous Sulfate [Iron] 65 mg PO DAILY 03/15/19 Hydrochlorothiazide 25 mg PO DAILY 03/15/19 Losartan Potassium 100 mg PO DAILY 03/15/19 Magnesium 250 mg PO DAILY 03/15/19 Metformin HCl 1,000 mg PO BID 03/15/19 Warfarin Sodium 5 mg PO SUTUTHSA 03/15/19 Warfarin Sodium 6 mg PO MOWEFR 03/15/19 Additional Instructions: the patient is a 68-year-old male presenting to the emergency room secondary to some chest discomfort and is found to be in A. fib with RVR. He is feeling much better with rate control. The patient has been offered admission for further testing and monitoring however he has deferred that at this time. He needs to continue with his metoprolol. I'm going to add digoxin 0.125 mg daily. diltiazem will be avoided for now due to low normal blood pressures. He needs to follow-up with his primary care doctor early next week for reevaluation. He should also take his Coumadin as he has been taking it, his level was therapeutic today. Cardiac enzymes are negative at 4 hours after onset. he should discuss getting set up with a cook syrup maker with his primary c are doctor as chest discomfort with tachycardia at this level could indicate some coronary stenosis that may need evaluation in the near future. ER warnings were given for any worsening.
[2019-03-15 12:23] VITALS: BP 100/79; TEMP 97.9; O2SAT 90
== END 2019-03-15 12:15 | disposition home or self-care (01) ==
LOC: ER 10:04
DX: I48.91 Unspecified atrial fibrillation (principal); R00.0 Tachycardia, unspecified; I24.8 Other forms of acute ischemic heart disease; K21.9 Gastro-esophageal reflux disease without esophagitis; F41.9 Anxiety disorder, unspecified; I10 Essential (primary) hypertension; E11.9 Type 2 diabetes mellitus without complications; Z79.01 Long term (current) use of anticoagulants; Z79.84 Long term (current) use of oral hypoglycemic drugs; Z79.82 Long term (current) use of aspirin; Z79.899 Other long term (current) drug therapy
CPT/HCPCS: 36415; 71045; 80053; 82550; 82553; 83735; 83880; 84443; 84484; 85025; 85610; 85730; 93005; J3475

== ENCOUNTER → 2019-04-11 | Outpatient (CLI) | payer OTHER ==
--- NOTE | 2019-04-12 09:02 | CT ---
EXAM DESCRIPTION: Abdomen/Pelvis w/o Contrast: Computed Tomography. CLINICAL HISTORY: 69 years Male ACUTE RENAL INSUFFICIENCY COMPARISON: Chest CT scan 04/24/2018. TECHNIQUE: Spiral-axial scans 2.5 x 2.5 mm intervals through the abdomen and pelvis without oral or IV contrast. Coronal and sagittal 2.0 mm reconstructions. Total Exam DLP: 1513.36 mGy-cm. This exam was performed according to our departmental CT dose-optimization program which includes automated exposure control, adjustment of the mA and/or kV according to patient size and/or use of iterative reconstruction technique; to reduce radiation dose to as low as reasonably achievable (ALARA). FINDINGS: Lung bases and pleura: Pleural parenchymal scarring in the left base which is reduced in volume because of anterior herniation of bowel mesentery lateral to the epicardial fat. Minimal coronary arterial atherosclerotic calcifications. Liver, stomach, spleen, and adrenal glands: Liver shape is elongated in the transverse axis. A subsegment of the liver protrudes superiorly with the eventration of the right hemidiaphragm. Fatty density of the liver. Spleen is slightly elevated into the left hemithorax. Adrenal glands and stomach are negative. Pancreas, Gallbladder, and Ducts: 1.5 cm pseudocyst on the posterior body of the pancreas abutting the head and uncinate process. Calcification also in the pancreas. Gallbladder is visualized. Common bile duct is not dilated. No fatty stranding or free fluid Kidneys and Ureters: Cortical thinning right kidney. Minimal pararenal fatty stranding. Dense circumscribed mass on the lateral superior cortex. Multiple cysts in the right kidney. No hydronephrosis. Distal right ureter is dilated with no periureteral edema. 6 cm cyst anterior right kidney with minimal wall calcification. 7.5 mm radiodense stone lower collecting system. Second large cyst in the upper pole posterior cortex and other smaller cysts bilaterally. Elongated calcified cast in the mid calyces of the kidney. Minimal perirenal stranding. Left ureter is unremarkable except for small dilated segment at the level of the mid sacrum. Mesentery: Increased mesenteric fat. No fatty stranding, free air or fluid or fascial thickening. Aorta: Atherosclerosis and minimal narrowing distally with ectasia of the proximal left common iliac artery. Small Bowel: Normal caliber with minimal gas but no air-fluid levels. Terminal Ileum/Cecum: Negative. Appendix not seen. Colon: Relatively small caliber throughout. Diverticula descending colon and more numerous in the sigmoid which is minimally redundant. No complications. Pelvic Organs: Bladder is small and contracted with thickened dempsey. Numerous radiodense stones which are relatively uniform in density diameter in size and cuboid in shape. 1 to 1.5 cm in diameter. No radiodense stones in the bilateral UVJ. Large prostate gland measuring 5.1 x 4.9 cm in the transverse axis impressing on the base of the urinary bladder and the seminal vesicles. No free fluid. Spine and Bony Pelvis: Disc space narrowing L5-S1. Also L4-5. And numerous levels of spondylosis in the included thoracic spine. Mild scoliosis. Abdominal Wall/Back Soft Tissues: Bilateral large fatty inguinal hernias larger on the right. Not containing bowel or fluid. Bilateral inguinal lymph nodes. Protrusion of the abdominal compartment and midline [place] density subcutaneous tissues at the level of the umbilicus but no bowel herniation. IMPRESSION: 1. 1.5 cm pseudocyst in the pancreas at the junction of the body and head of the pancreas. No surrounding inflammatory changes. No common bile duct dilation. Steatosis of the liver. Gallbladder normal size. 2. Bilateral herniations or eventrations in the hemidiaphragms, larger on the left. No fluid collection or inflammatory changes. 3. Multiple cysts bilateral kidneys but no hydronephrosis. Bilateral cortical thinning. Protein cyst lateral right kidney. Radiodense calcified casts in the left collecting system. Distal right ureter minimally dilated but no radiodense stones. 4. Multiple primary radiodense urinary stones formed in the urinary bladder, relatively uniform in size shape and density. Bladder is contracted with wall thickening. Marked mass effect on the base from enlarged prostate gland. No free fluid in the pelvis. 5. Diverticulosis distal colon with no complications or obstruction. Bilateral large fatty inguinal hernias not containing bowel. Electronically signed by: Jeremy Stanley MD 04/12/2019 8:59 AM CDT
== END ==
LOC: CT 07:58
PROVIDERS: ATTEND Family Medicine
DX: N28.89 Other specified disorders of kidney and ureter (principal); N21.0 Calculus in bladder; N32.89 Other specified disorders of bladder; N40.0 Benign prostatic hyperplasia without lower urinary tract symptoms; K86.3 Pseudocyst of pancreas; J98.6 Disorders of diaphragm; N28.1 Cyst of kidney, acquired; K57.30 Diverticulosis of large intestine without perforation or abscess without bleeding; K40.20 Bilateral inguinal hernia, without obstruction or gangrene, not specified as recurrent

== ENCOUNTER 2019-05-30 17:23 | Emergency (ER) | payer OTHER ==
[2019-05-30] MEDS ORDERED: SODIUM CHLORIDE 0.9% 1000ML 1,000 ML IVS ONE (17:53)
[2019-05-30] MEDS ORDERED: KETOROLAC TROMETHAMINE INJ 30 MG/ML VIAL IV ONE (17:53)
--- NOTE | 2019-05-30 17:57 | ED.PDOC ---
History of Present Illness - General Chief Complaint: Problem Stated Complaint: abdominal/flank pain Time Seen by Provider: 05/30/19 17:39 Source: patient - History of Present Illness Initial Comments: ONSET YESTERDAY WITH LEFT FLANK PAIN THAT RADIATES TO THE LEFT SANDRA ABDOMEN. DENIES NAUSEA OR VOMITING. HE HAS A HX OF KIDNEY STONES AND SEES DR. EVITA CUNNINGHAM. Quality: moderate Onset Location: left flank Radiation: left flank Activites at Onset: none Allergies/Adverse Reactions: Allergies NO KNOWN ALLERGY Allergy (Verified 05/30/19 17:43) Home Medications: Ambulatory Orders Aspirin [Aspirin Adult Low Dose] 81 mg PO DAILY 10/10/18 Metoprolol Tartrate 100 mg PO BID 10/10/18 Multiple Vitamins W/ Minerals [Multivitamin Adults] 1 tab PO DAILY 10/10/18 Potassium 2 each PO DAILY 10/10/18 Amlodipine Besylate [Norvasc] 2.5 mg PO DAILY 03/15/19 Buspirone HCl 10 mg PO BID 03/15/19 Digoxin 0.125 mg PO DAILY #30 tab 03/15/19 Doxazosin Mesylate 2 mg PO DAILY 03/15/19 Esomeprazole Magnesium 20 mg PO DAILY 03/15/19 Ferrous Sulfate [Iron] 65 mg PO DAILY 03/15/19 Hydrochlorothiazide 25 mg PO DAILY 03/15/19 Losartan Potassium 100 mg PO DAILY 03/15/19 Magnesium 250 mg PO DAILY 03/15/19 Metformin HCl [Metformin Hydrochloride] 1,000 mg PO BID 03/15/19 Warfarin Sodium 5 mg PO SUTUTHSA 03/15/19 Warfarin Sodium 6 mg PO MOWEFR 03/15/19 Ciprofloxacin 500 mg PO BEDTIME #20 ml 05/30/19 Ketorolac Tromethamine 10 mg PO TID #14 tab 05/30/19 metroNIDAZOLE [Flagyl] 500 mg PO Q8H #30 tab 05/30/19 Review of Systems - Review of Systems Constitutional: States: chills EENTM: States: no symptoms reported Respiratory: States: no symptoms reported Cardiology: States: no symptoms reported Gastrointestinal/Abdominal: States: no symptoms reported Genitourinary: States: no symptoms reported Musculoskeletal: States: no symptoms reported Skin: States: no symptoms reported Neurological: States: no symptoms reported Endocrine: States: no symptoms reported Past Medical History (General) - Patient Medical History Hx Stroke: No Hx Asthma: No Hx Cardiac Disorders: Yes - Atrial fib Hx Congestive Heart Failure: No Hx Hypertension: Yes Hx Diabetes: Yes Hx Gastroesophageal Reflux: Yes Hx MRSA: No Surgical History: appendectomy, other - Vaccination History Hx Tetanus, Diphtheria Vaccination: No Hx Influenza Vaccination: No Hx Pneumococcal Vaccination: No - Social History Hx Tobacco Use: No Hx Alcohol Use: No Family Medical History - Family History Father Family History: Unknown Living Status: Physical Exam - Physical Exam General Appearance: Alert, Well Developed, Well Groomed, Well Hydrated, Well Nourished Eyes, Ears, Nose, Throat Exam: PERRL/EOMI, normal ENT inspection Neck: non-tender, full range of motion, supple Cardiovascular/Respiratory: regular rate, rhythm, no M/R/G, normal peripheral pulses, no JVD, normal breath sounds Gastrointestinal/Abdominal: normal bowel sounds, soft, no organomegaly, other - PAINFUL TO THE LEFT UPPER AND LEFT LOWER QUADRANT AREA. Back Exam: CVA tenderness (L) Extremity: normal range of motion Neurologic: no motor/sensory deficits Skin Exam: normal color Progress - Progress Progress: 05/30/19 19:42 FEELS MUCH BETTER. 05/30/19 19:[address] IS REPORTED: 4 MM STYONE ON THE LEFT PROXIMAL URETER. EVIDENCE OF DIVERTICULITIS. - Results/Orders Results/Orders: 05/30/19 18:47 Urine Culture Stat Laboratory Results WBC 10.7 K/mm3 (4.8-10.8) 05/30/19 18:07 RBC 4.82 M/mm3 (4.70-6.10) 05/30/19 18:07 Hgb 14.2 gm/dL (14.0-18.0) 05/30/19 18:07 Hct 42.7 % (42.0-52.0) 05/30/19 18:07 MCV 88.7 fl (80.0-94.0) 05/30/19 18:07 MCH 29.4 pg (27.0-31.0) 05/30/19 18:07 MCHC 33.1 g/dL (33.0-37.0) 05/30/19 18:07 RDW 14.8 % (11.5-14.5) H 05/30/19 18:07 Plt Count 167 K/mm3 (130-400) 05/30/19 18:07 MPV 7.6 fl (7.40-10.4) 05/30/19 18:07 Absolute Neuts (auto) 8.90 K/uL (1.8-6.8) H 05/30/19 18:07 Absolute Lymphs (auto) 1.00 K/uL (1.0-3.4) 05/30/19 18:07 Absolute Monos (auto) 0.70 K/uL (0.2-0.8) 05/30/19 18:07 Absolute Eos (auto) 0.00 K/uL (0.0-0.4) 05/30/19 18:07 Absolute Basos (auto) 0.10 K/uL (0.0-0.1) 05/30/19 18:07 Neutrophils % 83.1 % (42.0-78.0) H 05/30/19 18:07 Lymphocytes % 9.3 % (20.0-50.0) L 05/30/19 18:07 Monocytes % 6.4 % (2.0-9.0) 05/30/19 18:07 Eosinophils % 0.3 % (1.0-5.0) L 05/30/19 18:07 Basophils % 0.9 % (0.0-2.0) 05/30/19 18:07 Sodium 140 mmol/L (135-145) 05/30/19 18:07 Potassium 4.3 mmol/L (3.6-5.0) 05/30/19 18:07 Chloride 101 mmol/L (101-111) 05/30/19 18:07 Carbon Dioxide 26 mmol/L (21-31) 05/30/19 18:07 Anion Gap 17.3 (12-18) 05/30/19 18:07 BUN 21 mg/dL (7-18) H 05/30/19 18:07 Creatinine 1.74 mg/dL (0.6-1.3) H 05/30/19 18:07 BUN/Creatinine Ratio 12.1 (10-20) 05/30/19 18:07 Random Glucose 163 mg/dL (70-105) H 05/30/19 18:07 Serum Osmolality 286.0 mOsm/L (275-295) 05/30/19 18:07 Calcium 9.4 mg/dL (8.4-10.2) 05/30/19 18:07 Total Bilirubin 0.4 mg/dL (0.2-1.0) 05/30/19 18:07 AST 30 IU/L (10-42) 05/30/19 18:07 ALT 30 IU/L (10-60) 05/30/19 18:07 Alkaline Phosphatase 74 IU/L (42-121) 05/30/19 18:07 Serum Total Protein 7.7 gm/dL (6.4-8.2) 05/30/19 18:07 Albumin 3.8 g/dl (3.2-5.5) 05/30/19 18:07 Globulin 3.9 gm/dL (2.3-3.5) H 05/30/19 18:07 Albumin/Globulin Ratio 1.0 (1.1-1.9) L 05/30/19 18:07 Urine Color Deisy (Yellow) 05/30/19 18:47 Urine Appearance Cloudy (Clear) 05/30/19 18:47 Urine pH 7.0 (4.5-7.8) 05/30/19 18:47 Ur Specific [place] 1.025 (1.005-1.030) 05/30/19 18:47 Urine Protein 100 mg/dL H 05/30/19 18:47 Urine Glucose (UA) 100 mg/dL (Negative) H 05/30/19 18:47 Urine Ketones Trace mg/dL (NEGATIVE) 05/30/19 18:47 Urine Blood Large (Negative) H 05/30/19 18:47 Urine Nitrite Negative 05/30/19 18:47 Urine Bilirubin Negative (NEGATIVE) 05/30/19 18:47 Urine Urobilinogen 0.2 mg/dL (0.2-1.0) 05/30/19 18:47 Ur Leukocyte Esterase Small (Negative) H 05/30/19 18:47 Urine RBC Tntc /hpf H 05/30/19 18:47 Urine WBC 0-1 /hpf 05/30/19 18:47 Ur Epithelial Cells 0-1 /hpf 05/30/19 18:47 Urine Bacteria 0 05/30/19 18:47 Departure - Departure Clinical Impression: Kidney stone on left side, Diverticulitis large intestine w/o perforation or abscess w/bleeding Time of Disposition: 19:44 Disposition: Discharge to Home or Self Care Departure Forms: ED Discharge - Pt. Copy, Patient Portal Self Enrollment Instructions: DI for Kidney Stones, Diverticulitis (DC) Diet: bland diet Activity: increase activity as tolerated Referrals: Cuauhtemoc Iraheta III, MD [Primary Care Provider] - 1-2 Days Prescriptions: Ciprofloxacin 500 mg PO BEDTIME #20 ml Ketorolac Tromethamine 10 mg PO TID #14 tab metroNIDAZOLE [Flagyl] 500 mg PO Q8H #30 tab Home Medications: Ambulatory Orders Aspirin [Aspirin Adult Low Dose] 81 mg PO DAILY 10/10/18 Metoprolol Tartrate 100 mg PO BID 10/10/18 Multiple Vitamins W/ Minerals [Multivitamin Adults] 1 tab PO DAILY 10/10/18 Potassium 2 each PO DAILY 10/10/18 Amlodipine Besylate [Norvasc] 2.5 mg PO DAILY 03/15/19 Buspirone HCl 10 mg PO BID 03/15/19 Digoxin 0.125 mg PO DAILY #30 tab 03/15/19 Doxazosin Mesylate 2 mg PO DAILY 03/15/19 Esomeprazole Magnesium 20 mg PO DAILY 03/15/19 Ferrous Sulfate [Iron] 65 mg PO DAILY 03/15/19 Hydrochlorothiazide 25 mg PO DAILY 03/15/19 Losartan Potassium 100 mg PO DAILY 03/15/19 Magnesium 250 mg PO DAILY 03/15/19 Metformin HCl [Metformin Hydrochloride] 1,000 mg PO BID 03/15/19 Warfarin Sodium 5 mg PO SUTUTHSA 03/15/19 Warfarin Sodium 6 mg PO MOWEFR 03/15/19 Ciprofloxacin 500 mg PO BEDTIME #20 ml 05/30/19 Ketorolac Tromethamine 10 mg PO TID #14 tab 05/30/19 metroNIDAZOLE [Flagyl] 500 mg PO Q8H #30 tab 05/30/19
--- NOTE | 2019-05-30 19:09 | CT ---
EXAM: CT Abdomen and Pelvis Without Intravenous Contrast CLINICAL HISTORY: 69 years old and is Male; LEFT FLANK PAIN - HEMATURIA TECHNIQUE: Axial computed tomography images of the abdomen and pelvis without intravenous contrast. Sagittal and coronal reformatted images were created and reviewed. This CT exam was performed using one or more of the following dose reduction techniques: automated exposure control, adjustment of the mA and/or kV according to patient size, and/or use of iterative reconstruction technique. COMPARISON: 04/11/2019 FINDINGS: Limitations: None. Lung bases: There is dependent consolidation within the left lung base. Heart: Cardiomegaly. ABDOMEN: Liver: Fatty liver. Gallbladder and bile ducts: Unremarkable. No calcified stones. No ductal dilation. Pancreas: Unremarkable. No ductal dilation. Spleen: Unremarkable. No splenomegaly. Adrenals: Unremarkable. No mass. Kidneys and ureters: Bilateral renal cysts present measuring up to about 5 cm diameter. There are smaller exophytic hyperdense nodules in the right kidney measuring up to 1 cm. Nonobstructing left kidney stones present. There is mild left hydronephrosis. There is now a 4 mm stone in the proximal left ureter at the level of the L4 pedicle. There is left perinephric inflammation. Stomach and bowel: Extensive colonic diverticulosis noted. One diverticulum in the sigmoid colon now appears mildly inflamed image 155 series 2. No intestinal obstruction. No mucosal thickening. PELVIS: Appendix: No findings to suggest acute appendicitis. Bladder: There are approximately 15 bladder stones measuring up to 1.3 cm. There is inferior bladder thickening. There is a small posterior bladder diverticulum. Reproductive: There is prominence of the prostate. ABDOMEN and PELVIS: Intraperitoneal space: Unremarkable. No free air. No significant fluid collection. Bones/joints: No acute fracture. No dislocation. Soft tissues: Moderate bilateral inguinal hernias noted containing fat. Vasculature: There is mild atherosclerosis of the aorta. No abdominal aortic aneurysm. Lymph nodes: Unremarkable. No enlarged lymph nodes. IMPRESSION: 1. There is now one mildly inflamed diverticulum in the sigmoid colon compatible with mild diverticulitis. No perforation, hemorrhage or obstruction. 2. There is now a 4 mm proximal left ureteral stone with mild hydronephrosis. Nonobstructing left kidney stones present. 3. Multiple bladder stones noted. There is bladder thickening which may reflect cystitis. Correlate with urinalysis. 4. Bilateral renal cysts present. There are two exophytic hyperdense nodules in the right kidney for which sonography is recommended unless already performed. Electronically signed by: Sydney Ceja MD 05/30/2019 7:07 PM CDT
[2019-05-30 19:24] VITALS: BP 147/86; TEMP 98; O2SAT 93
[2019-05-30] MEDS ORDERED: CIPROFLOXACIN 500 MG TAB PO ONE (19:40)
[2019-05-30] MEDS ORDERED: metroNIDAZOLE 500 MG TAB PO ONE (19:40)
[2019-05-30] MEDS ORDERED: traMADol HCL 50 MG (ER DISP) # 6 TABS PO ONE (19:41)
== END 2019-05-30 20:03 | disposition home or self-care (01) ==
LOC: ER 17:23
DX: N13.2 Hydronephrosis with renal and ureteral calculous obstruction (principal); K57.32 Diverticulitis of large intestine without perforation or abscess without bleeding; N21.0 Calculus in bladder; I48.91 Unspecified atrial fibrillation; I10 Essential (primary) hypertension; E11.9 Type 2 diabetes mellitus without complications; K21.9 Gastro-esophageal reflux disease without esophagitis; Z90.49 Acquired absence of other specified parts of digestive tract; Z79.01 Long term (current) use of anticoagulants; Z79.84 Long term (current) use of oral hypoglycemic drugs; Z79.899 Other long term (current) drug therapy; Z79.82 Long term (current) use of aspirin
CPT/HCPCS: 36415; 74176; 80053; 81001; 85025; 87086; J1885; J7030

== ENCOUNTER → 2019-12-28 | Outpatient (CLI) | payer OTHER ==
--- NOTE | 2019-12-28 17:01 | RAD ---
EXAM DESCRIPTION: Chest,2 Views CLINICAL HISTORY: 69 years Male COUGH, FEVER COMPARISON: 03/15/2019, 04/24/2018 FINDINGS: Cardiac enlargement. Elevation of the left hemidiaphragm with scarring or atelectasis in the left lung base which appears similar to previous examinations. Suspect rounded atelectasis in the left base. There is some pleural thickening along the left chest which appears to represent prominent pleural fat also noted on the prior examination from April 24, 2018. Flattening of the hemidiaphragm on the right without acute consolidation. No pneumothorax. No pleural fluid. IMPRESSION: No acute abnormality is identified. 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
== END ==
LOC: LAB.O 15:27
PROVIDERS: ATTEND Nurse Practitioner
DX: R50.9 Fever, unspecified (principal); J98.11 Atelectasis

== ENCOUNTER → 2020-01-18 | Outpatient (CLI) | payer OTHER | DX: N28.1 Cyst of kidney, acquired (principal); N20.0 Calculus of kidney; N26.1 Atrophy of kidney (terminal); N21.0 Calculus in bladder; K40.20 Bilateral inguinal hernia, without obstruction or gangrene, not specified as recurrent; N32.9 Bladder disorder, unspecified; N40.0 Benign prostatic hyperplasia without lower urinary tract symptoms; R19.00 Intra-abdominal and pelvic swelling, mass and lump, unspecified site; R93.5 Abnormal findings on diagnostic imaging of other abdominal regions, including retroperitoneum; R16.1 Splenomegaly, not elsewhere classified; K86.9 Disease of pancreas, unspecified; I77.819 Aortic ectasia, unspecified site ==

== ENCOUNTER 2020-02-20 15:07 | Inpatient (IN) | payer OTHER ==
[2020-02-20] MEDS ORDERED: ONDANSETRON INJ 4 MG/2 ML VIAL ONE (15:09)
[2020-02-20] MEDS ORDERED: ACETAMINOPHEN 500 MG TAB PO ONE ×2 (15:17→15:26)
[2020-02-20] MEDS ORDERED: ONDANSETRON INJ 4 MG/2 ML VIAL IV ONE (15:17)
--- NOTE | 2020-02-20 15:26 | ED.PDOC ---
History of Present Illness - General Chief Complaint: Respiratory Problem Time Seen by Provider: 02/20/20 15:12 Source: patient, RN notes reviewed, Vital Signs reviewed, EMS notes reviewed, EMS Exam Limitations: no limitations - History of Present Illness Initial Comments: Pt is a 69 yo male with PMH of afib, HTN, CHF who presents to ED via EMS for fever and SOB. States symptoms began yesterday evening with subjective fever, body aches, cough and feeling short of breath. Today, has had nausea and dry heaves. Upon EMS arrival, O2 sat was 84% on RA and improved to 92% with 2L NC. States he is on Warfarin for afib. Denies abdominal pain or diarrhea. Denies recent travel or known contacts with person with COVID 19. Allergies/Adverse Reactions: Allergies NO KNOWN ALLERGY Allergy (Verified 05/30/19 17:43) Home Medications: Ambulatory Orders Aspirin [Aspirin Adult Low Dose] 81 mg PO DAILY 10/10/18 Metoprolol Tartrate 100 mg PO BID 10/10/18 Multiple Vitamins W/ Minerals [Multivitamin Adults] 1 tab PO DAILY 10/10/18 Potassium Gluconate [Potassium] 2 each PO DAILY 10/10/18 Amlodipine Besylate [Norvasc] 2.5 mg PO DAILY 03/15/19 Buspirone HCl 10 mg PO BID 03/15/19 Digoxin 0.125 mg PO DAILY #30 tab 03/15/19 Doxazosin Mesylate 2 mg PO DAILY 03/15/19 Esomeprazole Magnesium 20 mg PO DAILY 03/15/19 Ferrous Sulfate [Iron] 65 mg PO DAILY 03/15/19 Hydrochlorothiazide 25 mg PO DAILY 03/15/19 Losartan Potassium 100 mg PO DAILY 03/15/19 Magnesium 250 mg PO DAILY 03/15/19 Metformin HCl [Metformin Hydrochloride] 1,000 mg PO BID 03/15/19 Warfarin Sodium 5 mg PO SUTUTHSA 03/15/19 Warfarin Sodium 6 mg PO MOWEFR 03/15/19 Ciprofloxacin 500 mg PO BEDTIME #20 ml 05/30/19 Ketorolac Tromethamine 10 mg PO TID #14 tab 05/30/19 metroNIDAZOLE [Flagyl] 500 mg PO Q8H #30 tab 05/30/19 Review of Systems - Review of Systems Constitutional: States: fever, malaise. Denies: chills EENTM: Denies: blurred vision, nose congestion, throat pain Respiratory: States: cough, short of breath Cardiology: Denies: chest pain, edema, palpitations, syncope Gastrointestinal/Abdominal: States: nausea, vomiting. Denies: abdominal pain, diarrhea Genitourinary: Denies: dysuria, hematuria Musculoskeletal: States: muscle pain. Denies: back pain Neurological: Denies: headache, seizure, weakness All other Systems: Reviewed and Negative Past Medical History (General) - Patient Medical History Hx Stroke: No Hx Asthma: No Hx Cardiac Disorders: Yes - Atrial fib Hx Congestive Heart Failure: No Hx Hypertension: Yes Hx Diabetes: Yes Hx Gastroesophageal Reflux: Yes Hx MRSA: No - Vaccination History Hx Tetanus, Diphtheria Vaccination: No Hx Influenza Vaccination: No Hx Pneumococcal Vaccination: No - Social History Hx Tobacco Use: No Hx Alcohol Use: No Family Medical History - Family History Father Family History: Unknown Living Status: Physical Exam - Physical Exam General Appearance: Alert, Anxious, Other - Pale, diaphoretic Neck: full range of motion, supple Respiratory: chest non-tender, other - good air movement. No wheezes. Tachypneic in mild rrespiratory distress Cardiovascular/Chest: tachycardia, other - regular rhythm Gastrointestinal/Abdominal: non tender, soft, no pulsatile mass Extremity: normal range of motion, no pedal edema Neurologic: no motor/sensory deficits, alert Skin Exam: diaphoresis Progress - Progress Progress: 02/20/20 15:33 Full PPE worn at all times with N95, face shield, gloves and gown. Pt has symptoms concerning for COVID 19. Will send test. Tylenol given for fever and will be judicious with fluids 02/20/20 16:22 Pt presents with fever, cough, SOB and body aches, N/V. CXR shows LLL lobar pneumonia and left pleural effusion. WBC count and lactic normal. platelets normal. COVID 19 sent. I suspect lobar bacterial pneumonia at this time and have initiated IV antibiotics. Will continue ddroplet isolation. I have d/w Jennifer Dumont hospitalist, who accepts to inpatient. - Results/Orders Results/Orders: EXAM DESCRIPTION: Chest,1 View CLINICAL HISTORY: 69 years Male, short of breath COMPARISON: Previous study December 28, 2019 TECHNIQUE: AP portable chest. FINDINGS: Heart size is large with centrally prominent pulmonary vascularity on the left. Dense left lower thorax is thought to be a combination of pleural fluid and pulmonary infiltrate or atelectasis. Pneumonia with parapneumonic effusion is thought most likely. Findings have worsened compared to previous study. Bones are unremarkable. IMPRESSION: Increased density in the mid and lower left thorax likely a combination of infiltrate and pleural fluid. 02/20/20 15:14 Telemetry ONCE Oxygen Stat Pulse Ox Stat 02/20/20 15:15 EKG STAT 02/20/20 15:45 SARS-COV2 PCR HIGH RISK MC Stat levoFLOXacin 750MG IV [Levaquin 750MG IV] 750 mg Premix Bag 1 bag IVPB ONCE BLOOD CULTURE Stat 02/20/20 15:52 Sodium Chloride 0.9% 1000ML [Ns 1000 ml] 1,000 ml IVS .QD Laboratory Results - last 24 hr 02/20/20 02/20/20 02/20/20 15:45 15:45 15:45 WBC 5.9 RBC 4.73 Hgb 12.7 L Hct 39.2 L MCV 82.9 MCH 26.7 L MCHC 32.2 L RDW 17.5 H Plt Count 174 MPV 7.8 Absolute Neuts (auto) 5.00 Absolute Lymphs (auto) 0.50 L Absolute Monos (auto) 0.30 Absolute Eos (auto) 0.00 Absolute Basos (auto) 0.00 Neutrophils % 85.4 H Lymphocytes % 9.0 L Monocytes % 4.7 Eosinophils % 0.3 L Basophils % 0.6 PT 24.0 H INR 2.42 H PTT (SP) 36.2 H Sodium 138 Potassium 4.2 Chloride 98 L Carbon Dioxide 28 Anion Gap 16.2 BUN 28 H Creatinine 1.93 H BUN/Creatinine Ratio 14.5 Random Glucose 186 H Serum Osmolality 286.0 Lactic Acid Calcium 9.2 Total Bilirubin 1.0 AST 21 ALT 19 Alkaline Phosphatase 62 B-Natriuretic Peptide 192.0 H Serum Total Protein 8.2 Albumin 3.5 Globulin 4.7 H Albumin/Globulin Ratio 0.7 L 02/20/20 15:45 WBC RBC Hgb Hct MCV MCH MCHC RDW Plt Count MPV Absolute Neuts (auto) Absolute Lymphs (auto) Absolute Monos (auto) Absolute Eos (auto) Absolute Basos (auto) Neutrophils % Lymphocytes % Monocytes % Eosinophils % Basophils % PT INR PTT (SP) Sodium Potassium Chloride Carbon Dioxide Anion Gap BUN Creatinine BUN/Creatinine Ratio Random Glucose Serum Osmolality Lactic Acid 1.9 Calcium Total Bilirubin AST ALT Alkaline Phosphatase B-Natriuretic Peptide Serum Total Protein Albumin Globulin Albumin/Globulin Ratio Departure - Departure Clinical Impression: Lobar pneumonia, Pleural effusion, Hypoxia Time of Disposition: 16:26 Disposition: Admit Patient Condition: Fair Departure Forms: ED Discharge - Pt. Copy, Patient Portal Self Enrollment Referrals: Cuauhtemoc Iraheta III, MD [Primary Care Provider] - 1-2 Weeks Home Medications: Ambulatory Orders Aspirin [Aspirin Adult Low Dose] 81 mg PO DAILY 10/10/18 Metoprolol Tartrate 100 mg PO BID 10/10/18 Multiple Vitamins W/ Minerals [Multivitamin Adults] 1 tab PO DAILY 10/10/18 Potassium Gluconate [Potassium] 2 each PO DAILY 10/10/18 Amlodipine Besylate [Norvasc] 2.5 mg PO DAILY 03/15/19 Buspirone HCl 10 mg PO BID 03/15/19 Digoxin 0.125 mg PO DAILY #30 tab 03/15/19 Doxazosin Mesylate 2 mg PO DAILY 03/15/19 Esomeprazole Magnesium 20 mg PO DAILY 03/15/19 Ferrous Sulfate [Iron] 65 mg PO DAILY 03/15/19 Hydrochlorothiazide 25 mg PO DAILY 03/15/19 Losartan Potassium 100 mg PO DAILY 03/15/19 Magnesium 250 mg PO DAILY 03/15/19 Metformin HCl [Metformin Hydrochloride] 1,000 mg PO BID 03/15/19 Warfarin Sodium 5 mg PO SUTUTHSA 03/15/19 Warfarin Sodium 6 mg PO MOWEFR 03/15/19 Ciprofloxacin 500 mg PO BEDTIME #20 ml 05/30/19 Ketorolac Tromethamine 10 mg PO TID #14 tab 05/30/19 metroNIDAZOLE [Flagyl] 500 mg PO Q8H #30 tab 05/30/19 Decision To Admit - Decistion To Admit Decision to Admit Reason: Admit from ER Decision to Admit Date: 02/20/20 Decision to Admit Time: 16:25
--- NOTE | 2020-02-20 15:42 | RAD ---
EXAM DESCRIPTION: Chest,1 View CLINICAL HISTORY: 69 years Male, short of breath COMPARISON: Previous study December 28, 2019 TECHNIQUE: AP portable chest. FINDINGS: Heart size is large with centrally prominent pulmonary vascularity on the left. Dense left lower thorax is thought to be a combination of pleural fluid and pulmonary infiltrate or atelectasis. Pneumonia with parapneumonic effusion is thought most likely. Findings have worsened compared to previous study. Bones are unremarkable. IMPRESSION: Increased density in the mid and lower left thorax likely a combination of infiltrate and pleural fluid. Electronically signed by: Homero Salcido MD 02/20/2020 3:41 PM CDT
[2020-02-20] MEDS ORDERED: SODIUM CHLORIDE 0.9% 1000ML 1,000 ML IVS ONE (15:44)
[2020-02-20] MEDS ORDERED: levoFLOXacin 750MG IV 750 MG in PREMIX BAG 1 BAG IVPB ONE (15:45)
[2020-02-20] MEDS ORDERED: SODIUM CHLORIDE 0.9% 1000ML 1,000 ML IVS PRN (15:52)
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
[2020-02-20] MEDS ORDERED: SODIUM CHLORIDE 0.9% (FLUSH) 10 ML SYG IV PRN (18:13)
[2020-02-20] MEDS ORDERED: ONDANSETRON INJ 4 MG/2 ML VIAL IV PRN (18:13)
[2020-02-20] MEDS ORDERED: ALBUTEROL INHALER 64 PUFF/8GM INH PRN (18:18)
[2020-02-20] MEDS ORDERED: IV SET AND CAP CHANGE INJ INJ SCH (18:30)
[2020-02-20] MEDS: ALBUTEROL INHALER 64 PUFF/8GM INH SCH (20:00)
[2020-02-20] MEDS ORDERED: METOPROLOL TARTRATE 50 MG TAB ONE (20:13)
[2020-02-20] MEDS ORDERED: FERROUS SULFATE 65 MG PO SCH (21:00)
[2020-02-20] MEDS ORDERED: NON-FORMULARY MEDICATION 1 EA MIS (Metoprolol Tartrate [Metoprolol Tartrate] 100 MG) PO SCH (21:00)
[2020-02-20] MEDS ORDERED: guaiFENesin ER TAB 600 MG TAB ONE (21:21)
[2020-02-20] MEDS ORDERED: TEMAZEPAM 15 MG CAP ONE (21:22)
[2020-02-20] MEDS: SODIUM CHLORIDE 0.9% (FLUSH) 10 ML SYG IV SCH (21:25)
[2020-02-20] MEDS: ASPIRIN (ENTERIC COATED) 81 MG TAB PO SCH (21:25)
[2020-02-20] MEDS: TEMAZEPAM 15 MG CAP PO PRN (21:26)
[2020-02-20] MEDS: guaiFENesin ER TAB 600 MG TAB PO SCH (21:30)
[2020-02-21] MEDS ORDERED: DEXTROSE 50% 25 GM/50 ML SYG IV PRN (00:14)
[2020-02-21] MEDS ORDERED: GLUCAGON INJ 1 MG VIAL SUBCU PRN (00:14)
[2020-02-21] MEDS ORDERED: PANTOPRAZOLE SODIUM IV 40 MG VIAL IV SCH (06:30)
[2020-02-21] MEDS: INSULIN LISPRO 100 UNITS/ML PEN SUBCU SCH ×4 (07:22→21:08)
[2020-02-21] MEDS ORDERED: amLODIPine BESYLATE 5 MG TAB ONE (08:19)
[2020-02-21] MEDS ORDERED: METOPROLOL TARTRATE 50 MG TAB ONE (08:19)
--- NOTE | 2020-02-21 08:19 | RAD ---
EXAM DESCRIPTION: Chest,1 View CLINICAL HISTORY: 69 years Male, Pneumonia COMPARISON: February 20, 2020, December 28, 2019, March 15, 2019 TECHNIQUE: AP portable chest. FINDINGS: Better inspiration of the chest is evident with improved lung volumes in comparison to previous day's portable study. Cardiomegaly and at least modest central vascular congestion is present with the right lung essentially clear. Borderline vascular congestion suspected. Left lung base is abnormal and deteriorated from previous more remote examination. Chronically elevated left hemidiaphragm is present but more dense opacification at the lung base extending to the inferior hilar region is present. I suspect there is underlying left basilar atelectasis/consolidation and/or layering pleural fluid at the posterior left lung base. IMPRESSION: Improved appearance of the chest with persistent cardiomegaly and modest central vascular congestion and clear right lung. Opacified left lung base, some of which represents a chronically elevated left hemidiaphragm but I am suspicious additional atelectasis/infiltrate and pleural fluid is present at the left lung base. Electronically signed by: Henry Amaya MD 02/21/2020 8:17 AM CDT
[2020-02-21] MEDS: ALBUTEROL INHALER 64 PUFF/8GM INH SCH ×4 (08:30→20:30)
[2020-02-21] MEDS ORDERED: busPIRone HCL 5 MG TAB PO PRN (08:39)
[2020-02-21] MEDS ORDERED: levoFLOXacin 750MG IV 750 MG in PREMIX BAG 1 BAG IVPB SCH (09:00)
[2020-02-21] MEDS: guaiFENesin ER TAB 600 MG TAB PO SCH ×2 (10:21→20:07)
[2020-02-21] MEDS: DOXAZOSIN MESYLATE 2 MG TAB PO SCH (10:21)
[2020-02-21] MEDS: METOPROLOL TARTRATE 50 MG TAB PO SCH ×2 (10:21→20:08)
[2020-02-21] MEDS: amLODIPine BESYLATE 5 MG TAB PO SCH (10:21)
[2020-02-21] MEDS: SODIUM CHLORIDE 0.9% (FLUSH) 10 ML SYG IV SCH ×2 (10:23→20:08)
[2020-02-21] MEDS: SITagliptin 50 MG TAB PO SCH (10:23)
[2020-02-21] MEDS: WARFARIN SODIUM 5 MG TAB PO SCH (12:00)
--- NOTE | 2020-02-21 14:13 | PN ---
SUPERVISING PHYSICIAN: Jamie Curtis MD DATE: 02/21/20 SUBJECTIVE: The patient is sitting up in bed. He feels better, but still quite weak. He has some shortness of breath with exertion, but no nausea, vomiting or chest pain. OBJECTIVE: VITAL SIGNS: Temperature 97.4. Heart rate 71. Blood pressure 114/73. Respiratory rate 18. O2 saturation 94% on 2 liters nasal cannula. RESPIRATORY: Diminished breath sounds throughout, especially in the left lower lobe. His respiratory rate is normal, but he does have to speak in 2 to 3 works phrases due to his shortness of breath. CARDIAC: Regular rate and rhythm. GASTROINTESTINAL: Abdomen is soft, nondistended, nontender. Bowel sounds are positive. NEUROLOGIC: Awake, alert and oriented times three. LABORATORY: WBCs 8.8, hemoglobin 11.6, hematocrit 36.5. INR 2.43. Electrolytes are basically within normal limits. Blood sugars have run between 125 and 145. Liver enzymes are within normal limits. Preliminary blood cultures are negative to date. Chest x-ray shows improved appearance of the chest with persistent cardiomegaly and modest central vascular congestion and a clear right lung. Opacified left lung base, some of which represents chronically elevated left hemidiaphragm with suspicious for atelectasis/infiltrate and pleural fluid is present in the left lung base. All other labs and films have been reviewed via the EMR. ASSESSMENT: 1. Sepsis related to left lower lobe pneumonia with an admitting temperature of 103.4, heart rate 112, O2 saturation 84%. 2. High risk for COVID-19, awaiting results of testing. 3. History of atrial fibrillation on warfarin therapy. 4. Chronic renal insufficiency with baseline creatinine of 1.4. Admitting creatinine is 1.9. 5. Posttraumatic stress disorder. 6. Diabetes mellitus, type 2. PLAN: We will continue present supportive care including aggressive pulmonary hygiene. He will continue with his Levaquin. I have resumed his routine dose of Coumadin at 5 mg daily and will repeat his lab including PT/INR in the morning. We will to discuss with him discharge planning in that he may need home health. we will continue to monitor the patient closely and follow as needed. #[id number] MTDD
[2020-02-21] MEDS: ACETAMINOPHEN 325 MG TAB PO PRN (20:07)
[2020-02-21] MEDS: TEMAZEPAM 15 MG CAP PO PRN (20:07)
[2020-02-21] MEDS: FERROUS SULFATE 325 MG TAB PO SCH (20:07)
[2020-02-21] MEDS: ASPIRIN (ENTERIC COATED) 81 MG TAB PO SCH (20:08)
[2020-02-22] MEDS ORDERED: PANTOPRAZOLE SODIUM IV 40 MG VIAL ONE (04:17)
[2020-02-22] MEDS: PANTOPRAZOLE SODIUM TAB 40 MG PO SCH (06:05)
[2020-02-22] MEDS: INSULIN LISPRO 100 UNITS/ML PEN SUBCU SCH ×4 (07:38→20:23)
[2020-02-22] MEDS ORDERED: DIGOXIN 0.125 MG TAB PO SCH (09:00)
[2020-02-22] MEDS: SITagliptin 50 MG TAB PO SCH (09:25)
[2020-02-22] MEDS: METOPROLOL TARTRATE 50 MG TAB PO SCH ×2 (09:26→20:18)
[2020-02-22] MEDS: ACETAMINOPHEN 325 MG TAB PO PRN ×2 (09:26→20:18)
[2020-02-22] MEDS: guaiFENesin ER TAB 600 MG TAB PO SCH ×2 (09:26→20:18)
[2020-02-22] MEDS: amLODIPine BESYLATE 5 MG TAB PO SCH (09:26)
[2020-02-22] MEDS: DOXAZOSIN MESYLATE 2 MG TAB PO SCH (09:26)
[2020-02-22] MEDS: ALBUTEROL INHALER 64 PUFF/8GM INH SCH ×4 (09:30→20:55)
[2020-02-22] MEDS: SODIUM CHLORIDE 0.9% (FLUSH) 10 ML SYG IV SCH ×2 (09:31→20:23)
[2020-02-22] MEDS: WARFARIN SODIUM 5 MG TAB PO SCH (12:21)
[2020-02-22] MEDS: FERROUS SULFATE 325 MG TAB PO SCH (20:18)
[2020-02-22] MEDS: ASPIRIN (ENTERIC COATED) 81 MG TAB PO SCH (20:19)
[2020-02-22] MEDS: TEMAZEPAM 15 MG CAP PO PRN (23:29)
[2020-02-23] MEDS: PANTOPRAZOLE SODIUM TAB 40 MG PO SCH (06:15)
[2020-02-23] MEDS: INSULIN LISPRO 100 UNITS/ML PEN SUBCU SCH ×2 (07:33→11:36)
[2020-02-23] MEDS: ALBUTEROL INHALER 64 PUFF/8GM INH SCH ×2 (08:10→13:20)
[2020-02-23] MEDS ORDERED: levoFLOXacin 750MG IV 750 MG in PREMIX BAG 1 BAG IVPB SCH (09:00)
[2020-02-23] MEDS: amLODIPine BESYLATE 5 MG TAB PO SCH (09:11)
[2020-02-23] MEDS: SITagliptin 50 MG TAB PO SCH (09:12)
[2020-02-23] MEDS: DOXAZOSIN MESYLATE 2 MG TAB PO SCH (09:12)
[2020-02-23] MEDS: METOPROLOL TARTRATE 50 MG TAB PO SCH (09:12)
[2020-02-23] MEDS: guaiFENesin ER TAB 600 MG TAB PO SCH (09:12)
[2020-02-23] MEDS: SODIUM CHLORIDE 0.9% (FLUSH) 10 ML SYG IV SCH (09:13)
--- NOTE | 2020-02-23 09:46 | RAD ---
: 1950. Technique: Portable AP chest x-ray. Comparison: February 21, 2020. Clinical history: pna. Heart size: Heart size is enlarged. There is no vascular congestion. Lungs: There is volume loss on the left side. The diaphragm contour is obscured and there is opacity in the left lower lung field consistent with pneumonia and/or atelectasis that has worsened somewhat. The right lung is aerated. Pleura: Cannot exclude left pleural effusion. No pneumothorax. Mediastinum and aliza: Unremarkable. Skeletal: Unremarkable. Support tubings: None. Impression: 1. Left-sided volume loss with pneumonia/atelectasis in the lower lung field. Electronically signed by: Ihsan Prince MD 02/23/2020 9:44 AM CDT
--- NOTE | 2020-02-23 10:03 | PN ---
SUPERVISING PHYSICIAN: Jamie Curtis MD DATE: 02/22/20 SUBJECTIVE: The patient is sitting up in bed. He is asleep. He awakens easily. He continues to feel better with much less shortness of breath. We discussed that he could go home with oral antibiotics once his COVID-19 results were back. He denies nausea or vomiting. Yesterday, the patient had some complaints of chest pain but was over within a few minutes. There was no diaphoresis or shortness of breath. His cardiac enzymes were negative. There were no changes on his EKG. He has no complaints of chest pain today. OBJECTIVE: VITAL SIGNS: Temperature 97.6. Heart rate 90. Blood pressure 138/82. Respiratory rate 18. Oxygen saturation 96% on 2 liters nasal cannula. RESPIRATORY: Diminished at the left lung base. Otherwise, clear to auscultation. CARDIAC: Regular rate and rhythm. GASTROINTESTINAL: Abdomen is soft, nondistended, nontender. Bowel sounds are positive. NEUROLOGIC: Awake, alert and oriented times three. LABORATORY: WBCs 8.2, hemoglobin 12, hematocrit 37.4. NR 2.35. Blood sugars have run between 140 and 200. Electrolytes are basically within normal limits. BUN 35, creatinine improved to 1.86. Cardiac enzymes were negative from yesterday. Preliminary blood cultures showed no growth after 48 hours. All other labs and films have been reviewed via the EMR. ASSESSMENT: 1. Sepsis related to left lower lobe pneumonia with an admitting temperature of 103.4, heart rate 112, O2 saturation 84%. 2. High risk for COVID-19, awaiting results of testing. 3. History of atrial fibrillation on warfarin therapy. 4. Chronic renal insufficiency with baseline creatinine of 1.4. Admitting creatinine is 1.9. 5. Posttraumatic stress disorder. 6. Diabetes mellitus, type 2. PLAN: We will continue present supportive care and continue to await his COVID- 19 results. Hopefully, he can be discharged tomorrow. I have ordered lab and chest x-ray for in the morning and continued to encourage good pulmonary hygiene. We will continue to monitor the patient closely and follow as needed. #[id number] MTDD
[2020-02-23] MEDS: WARFARIN SODIUM 5 MG TAB PO SCH (12:14)
[2020-02-23 16:10] VITALS: BP 130/76; TEMP 97.8; O2SAT 99
--- NOTE | 2020-02-25 09:44 | DS ---
SUPERVISING PHYSICIAN: Jamie Curtis MD ADMISSION DIAGNOSIS: 1. Sepsis related to left lower lobe pneumonia with an admitting temperature of 103.4, heart rate 112, O2 saturation 84%. 2. High risk for COVID-19, awaiting results of testing. 3. History of atrial fibrillation on warfarin therapy. 4. Chronic renal insufficiency with baseline creatinine of 1.4. Admitting creatinine is 1.9. 5. Posttraumatic stress disorder. 6. Diabetes mellitus, type 2. DISCHARGE DIAGNOSIS: 1. Left lower lobe pneumonia with sepsis, showing improvement with antibiotic treatment. 2. Negative COVID-19 testing. 3. Chronic atrial fibrillation on warfarin therapy with a controlled ventricular rate. 4. Chronic renal insufficiency, returning to baseline. 5. Posttraumatic stress disorder. 6. Diabetes mellitus, type 2. REASON FOR HOSPITALIZATION: This is a 69-year-old male patient who has had shortness of breath as well as a fever over the last several days. He actually woke up yesterday very diaphoretic and with chills. He took a hot shower and went back to bed. He then got up later and continued to be diaphoretic with chills. He got to the point that he was so weak that he felt like he should come to the Emergency Room. He called EMS and they brought him to the ER due to the fever and shortness of breath. His initial vital signs showed temperature 103.4 with heart rate 112, blood pressure 145/70, respiratory rate 20, O2 saturation 94% on 2 liters nasal cannula. He initially started with some sinus symptoms about 4 to 5 days ago with some cough that was nonproductive. He is on warfarin for atrial fibrillation. In the Emergency Room, his lab studies showed WBC 5.9, hemoglobin 12.7, hematocrit 39.2. He did have a left shift on his differential. PT was 24, INR 2.42. Sodium 138, potassium 4.2, chloride 98, carbon dioxide 28, BUN 28, creatinine 1.93, glucose 186, lactic acid 1.9, liver enzymes within normal limits. BNP was 192. Blood cultures were ordered. Chest x-ray shows increased density in left mid and lower thorax which may represent infiltrate or atelectasis. He was given Levaquin in the ER as well as judicious fluids. He was tested for COVID-19 due to his high risk, although he has not been out of his house, nor has he traveled anywhere. I was called for hospital admission. LABORATORY: At discharge, white count was 8,200, hemoglobin 12.0, hematocrit 37.4, platelet count 181,000. Differential was without a left shift. Coagulation studies showed PT 24.3, INR 2.45. Chemistries showed blood sugars ranged between 126 and 211. Final chemistry showed creatinine 1.86 with normal electrolytes. Calcium 8.5, magnesium 1.8, digoxin level 0.3. MICROBIOLOGY: Blood cultures are negative after 3 days. RADIOLOGY: Final chest x-ray on date of discharge showed left sided volume loss with pneumonia, atelectasis in the right lower lung field. HOSPITAL COURSE: Mr. Dumont was admitted for treatment of pneumonia. He was treated with antibiotics including Levaquin. He showed good clinical improvement and was felt clinically stable enough to continue with outpatient management. He had no complicating factors. His PT/INR remained stable. Atrial fibrillation was stable. DISCHARGE ASSESSMENT: VITAL SIGNS: Temperature 97.8. Pulse 90. Blood pressure 130/76. Respirations 18. Saturation 99% on 2 liters nasal cannula. GENERAL: The patient is resting comfortably and did not appear to be in any acute distress. CHEST: Lung sounds clear, just diminished towards the bases. HEART: Slightly irregular rate and rhythm, but stable ventricular rate. ABDOMEN: Soft, nontender with positive bowel sounds. EXTREMITIES: No edema. NEUROLOGIC: Alert and oriented x3. PLAN: Mr. Dumont was discharged to continue treatment with albuterol inhalers and continue antibiotic coverage with Levaquin. He is to followup with Dr. Iraheta and call his office next week to establish an appointment. He was to resume his previous medications prior to hospitalization. Diet was diabetic diet as tolerated. Activity to increase as tolerate. MEDICATIONS PRESCRIBED ON DISCHARGE: 1. Ventolin inhaler 2 puffs q.4h. as needed, no refills, p.r.n. as well. 2. Levaquin 500 mg daily, #7, no refills. CONDITION ON DISCHARGE: Stable and improved. DISPOSITION: Mr. Dumont was discharged home. #[id number] MTDD
== END 2020-02-23 16:13 | disposition home or self-care (01) | DRG 871 ==
LOC: ER 15:07 → OBSVTOIN 17:04 → MS 17:04 → UNDOADMOB 17:04 → MS 17:04 → INTOOBSV 17:04 → OBSVTOIN 02-23 01:46 → UNDOADMOB 02-23 01:46 → MS 02-23 01:46 → UNDODISIN 02-23 16:13
PROVIDERS: ADMIT Family Medicine; ATTEND Nurse Practitioner Family
DX: A41.9 Sepsis, unspecified organism (principal); J18.9 Pneumonia, unspecified organism; I48.20 Chronic atrial fibrillation, unspecified; I13.0 Hypertensive heart and chronic kidney disease with heart failure and stage 1 through stage 4 chronic kidney disease, or unspecified chronic kidney disease; N18.9 Chronic kidney disease, unspecified; E11.22 Type 2 diabetes mellitus with diabetic chronic kidney disease; F43.10 Post-traumatic stress disorder, unspecified; I50.9 Heart failure, unspecified; F41.9 Anxiety disorder, unspecified; Z79.01 Long term (current) use of anticoagulants

== ENCOUNTER 2020-02-28 22:16 | Emergency (ER) | payer OTHER ==
[2020-02-28] MEDS ORDERED: SODIUM CHLORIDE 0.9% 1000ML 1,000 ML IVS ONE (22:44)
[2020-02-29 00:07] VITALS: BP 149/88; TEMP 98.8; O2SAT 95
--- NOTE | 2020-02-29 00:08 | ED.PDOC ---
History of Present Illness - General Chief Complaint: Problem Stated Complaint: blood in urine Time Seen by Provider: 02/28/20 22:28 Source: patient, RN notes reviewed, Vital Signs reviewed, old records Exam Limitations: no limitations - History of Present Illness Initial Comments: This is a 69-year-old male with history of A. fib, on Coumadin, history of recurrent kidney stones since the 1970s, CKD, presenting with gross hematuria onset earlier today. He states he gets frequent episodes of mild hematuria related to his kidney stones, but today was more pronounced than previous episodes. He denies any abdominal or flank pain. He denies any dysuria. He was just discharged from the hospital for pneumonia 3 days ago and is currently on antibiotics. Last INR in the hospital was 2.1. Dr. Vincent is his urologist, he had a CT performed as an outpatient 1 to 2 weeks ago, but is unsure of the results. He denies any fever. No sick contacts, no cough, no shortness of breath. He states he did have a couple episodes of dizziness earlier today, this is resolved. Allergies/Adverse Reactions: Allergies NO KNOWN ALLERGY Allergy (Verified 05/30/19 17:43) Home Medications: Ambulatory Orders Aspirin [Aspirin Adult Low Dose] 81 mg PO BEDTIME 10/10/18 Metoprolol Tartrate 100 mg PO BID 10/10/18 Multiple Vitamins W/ Minerals [Multivitamin Adults] 1 tab PO DAILY 10/10/18 Potassium Gluconate [Potassium] 2 each PO DAILY 10/10/18 Amlodipine Besylate [Norvasc] 2.5 mg PO DAILY 03/15/19 Doxazosin Mesylate 2 mg PO DAILY 03/15/19 Esomeprazole Magnesium 20 mg PO DAILY 03/15/19 Ferrous Sulfate [Iron] 65 mg PO BEDTIME 03/15/19 Magnesium 250 mg PO DAILY 03/15/19 Warfarin Sodium 5 mg PO BEDTIME 03/15/19 Sitagliptin Phosphate [Januvia] 50 mg PO DAILY 02/20/20 Digoxin 0.125 mg PO ELIANA-OTH-DAY #30 tab 02/23/20 levoFLOXacin [Levaquin] 500 mg PO DAILY #7 tab 02/23/20 Review of Systems - Review of Systems Constitutional: Denies: chills, fever EENTM: Denies: nose congestion, throat pain Respiratory: Denies: cough, short of breath Cardiology: Denies: chest pain, edema, palpitations, syncope Gastrointestinal/Abdominal: Denies: abdominal pain, diarrhea, nausea, vomiting Genitourinary: States: frequency, hematuria. Denies: dysuria Musculoskeletal: Denies: back pain, muscle stiffness, neck pain Skin: Denies: lesions, rash Neurological: Denies: tingling, weakness Endocrine: States: no symptoms reported Hematologic/Lymphatic: States: anemia - Chronic, has received iron infusions before in the past, easy bleeding, other - On warfarin Past Medical History (General) - Patient Medical History Hx Seizures: No Hx Stroke: No Hx Dementia: No Hx Asthma: No Hx of COPD: No Hx Cardiac Disorders: No Hx Congestive Heart Failure: No Hx Pacemaker: No Hx Hypertension: Yes Hx Thyroid Disease: No Hx Diabetes: Yes Hx Gastroesophageal Reflux: Yes - GERD Hx Renal Disease: No Hx Cancer: No Hx of HIV: No Hx Hepatitis C: No Hx MRSA: No - Vaccination History Hx Tetanus, Diphtheria Vaccination: Yes Hx Influenza Vaccination: No Hx Pneumococcal Vaccination: No Immunizations Up to Date: Yes - Social History Hx Tobacco Use: No Hx Chewing Tobacco Use: No Hx Alcohol Use: No Hx Substance Use: No Hx Depression: No Feels Threatened In Home Enviroment: No Feels Threatened In a Relationship: No Hx Physical Abuse: No Hx Emotional Abuse: No Hx Suspected Abuse: No - Activities of Daily Living Hospice Agency (if applicable):: None - Female History Patient is a Female of Child Bearing Age (10 -59 yrs old): No Family Medical History - Family History Father Family History: Unknown Living Status: Physical Exam - Physical Exam General Appearance: Alert, Anxious, No apparent distress, Obese Eyes, Ears, Nose, Throat Exam: PERRL/EOMI, normal ENT inspection Neck: full range of motion, supple, normal inspection Cardiovascular/Respiratory: regular rate, rhythm, no M/R/G, normal peripheral pulses, no JVD, normal breath sounds, no respiratory distress Gastrointestinal/Abdominal: non tender, soft Back Exam: normal inspection, no CVA tenderness, no vertebral tenderness Extremity: non-tender, normal inspection, no pedal edema, no calf tenderness Neurologic: no motor/sensory deficits, alert, normal mood/affect, oriented x 3 Skin Exam: normal color, warm/dry Progress - Progress Progress: 02/28/20 23:[address] Delgado, urology, on-call for Dr. Patel. Reviewed labs, vital signs, history. Agrees with plan for discharge, recommends calling Dr. Vincent in a.m. to discuss outpatient follow-up. If patient is to return in the near future, recommends three-way Bruce and bladder irrigation, but agrees with plan to defer that at this time since the patient is able to urinate freely.He also agrees with plan to defer any imaging at this time since the patient had outpatient imaging within the last 1 to 2 weeks. 02/28/20 23:24 Rechecked. Discussed lab findings, plan for discharge. Recommended keeping appointment with Dr. Vincent in a.m. as scheduled and to call Dr. Patel tomorrow to arrange for outpatient follow-up. Strict warnings given to return the emergency room for abdominal pain, inability to urinate, fever, increased blood in urine, dizziness/syncope, or any other concerns. MDM: DDX: Kidney stone, supratherapeutic INR, hemorrhagic cystitis, low suspicion for renal mass given recent outpatient imaging. Patient discharged from the hospital 2 to 3 days ago for pneumonia. He is currently on Levaquin. Presenting with gross hematuria. History of similar, states today is more severe. INR 1.4, creatinine at baseline at 2.0. GFR by MDRD is 34, stage III CKD. He is able to urinate, hemoglobin 11. Vital signs normal. He is a very anxious personality, but in no acute distress. No indication for admission or bladder irrigation at this time. Case was reviewed with urology who agrees with plan for discharge and outpatient follow-up. Adam Mota DO [facility] #[id number] - Results/Orders Results/Orders: Laboratory Tests 02/28/20 02/28/20 02/28/20 22:21 22:35 22:35 WBC 10.7 RBC 4.35 L Hgb 11.7 L Hct 35.7 L MCV 82.1 MCH 27.0 MCHC 32.9 L RDW 17.4 H Plt Count 274 MPV 7.2 L Absolute Neuts (auto) 7.40 H Absolute Lymphs (auto) 2.30 Absolute Monos (auto) 0.70 Absolute Eos (auto) 0.20 Absolute Basos (auto) 0.10 Neutrophils % 69.0 Lymphocytes % 21.7 Monocytes % 6.4 Eosinophils % 1.6 Basophils % 1.3 PT 14.8 H INR 1.49 H Sodium Potassium Chloride Carbon Dioxide Anion Gap BUN Creatinine BUN/Creatinine Ratio Random Glucose Serum Osmolality Calcium Total Bilirubin Direct Bilirubin Indirect Bilirubin AST ALT Alkaline Phosphatase Serum Total Protein Albumin Urine Color Red Urine Appearance Turbid Urine pH 6.5 Ur Specific [place] 1.025 Urine Protein >=300 H Urine Glucose (UA) 100 H Urine Ketones Negative Urine Blood Large H Urine Nitrite Negative Urine Bilirubin Negative Urine Urobilinogen 0.2 Ur Leukocyte Esterase Negative Urine RBC Tntc H Urine WBC 0-1 Ur Epithelial Cells 0 Urine Bacteria Rare 02/28/20 02/28/20 22:35 22:35 WBC RBC Hgb Hct MCV MCH MCHC RDW Plt Count MPV Absolute Neuts (auto) Absolute Lymphs (auto) Absolute Monos (auto) Absolute Eos (auto) Absolute Basos (auto) Neutrophils % Lymphocytes % Monocytes % Eosinophils % Basophils % PT INR Sodium 138 Potassium 3.7 Chloride 103 Carbon Dioxide 27 Anion Gap 11.7 L BUN 37 H Creatinine 2.04 H BUN/Creatinine Ratio 18.1 Random Glucose 233 H Serum Osmolality 291.8 Calcium 8.7 Total Bilirubin 0.4 Direct Bilirubin 0.1 Indirect Bilirubin 0.3 AST 37 ALT 41 Alkaline Phosphatase 61 Serum Total Protein 7.4 Albumin 3.0 L Urine Color Urine Appearance Urine pH Ur Specific [place] Urine Protein Urine Glucose (UA) Urine Ketones Urine Blood Urine Nitrite Urine Bilirubin Urine Urobilinogen Ur Leukocyte Esterase Urine RBC Urine WBC Ur Epithelial Cells Urine Bacteria Departure - Departure Clinical Impression: History of atrial fibrillation, Chronic anticoagulation, Subtherapeutic international normalized ratio (INR), History of kidney stones Hematuria Qualifiers: Hematuria type: gross Qualified Code(s): R31.0 - Gross hematuria CKD (chronic kidney disease) Qualifiers: Chronic kidney disease stage: stage 3 (moderate) Qualified Code(s): N18.3 - Chronic kidney disease, stage 3 (moderate) Disposition: Discharge to Home or Self Care Condition: Good Departure Forms: ED Discharge - Pt. Copy, Patient Portal Self Enrollment Instructions: Blood in the Urine (Hematuria) in Adults Referrals: EVITA VINCENT MD [Consulting Staff] - 1-2 Days (Call in the morning) Cuauhtemoc Iraheta III, MD [Primary Care Provider] - 1-2 Days Home Medications: Ambulatory Orders Aspirin [Aspirin Adult Low Dose] 81 mg PO BEDTIME 10/10/18 Metoprolol Tartrate 100 mg PO BID 10/10/18 Multiple Vitamins W/ Minerals [Multivitamin Adults] 1 tab PO DAILY 10/10/18 Potassium Gluconate [Potassium] 2 each PO DAILY 10/10/18 Amlodipine Besylate [Norvasc] 2.5 mg PO DAILY 03/15/19 Doxazosin Mesylate 2 mg PO DAILY 03/15/19 Esomeprazole Magnesium 20 mg PO DAILY 03/15/19 Ferrous Sulfate [Iron] 65 mg PO BEDTIME 03/15/19 Magnesium 250 mg PO DAILY 03/15/19 Warfarin Sodium 5 mg PO BEDTIME 03/15/19 Sitagliptin Phosphate [Januvia] 50 mg PO DAILY 02/20/20 Digoxin 0.125 mg PO ELIANA--DAY #30 tab 02/23/20 levoFLOXacin [Levaquin] 500 mg PO DAILY #7 tab 02/23/20 Additional Instructions: Drink plenty of fluids. Follow-up with Dr. Iraheta in the morning as scheduled. Call Dr. Vincent tomorrow and notify of your ER visit. Return to the emergency room immediately for difficulty urinating, fever, increased blood in urine, dizziness/loss of consciousness, abdominal pain, or any other concerns.
== END 2020-02-29 00:02 | disposition home or self-care (01) ==
LOC: ER 22:16
DX: R31.0 Gross hematuria (principal); N18.3 Chronic kidney disease, stage 3 (moderate); I48.91 Unspecified atrial fibrillation; R42 Dizziness and giddiness; Z79.01 Long term (current) use of anticoagulants; Z87.442 Personal history of urinary calculi
CPT/HCPCS: 36415; 80048; 80076; 81001; 85025; 85610; 87086; J7030

== ENCOUNTER → 2020-03-14 | Outpatient (CLI) | payer OTHER | LOC: BFHH 09:37 | PROVIDERS: ATTEND Family Medicine | DX: I48.91 Unspecified atrial fibrillation (principal); I13.0 Hypertensive heart and chronic kidney disease with heart failure and stage 1 through stage 4 chronic kidney disease, or unspecified chronic kidney disease; M18.9 Osteoarthritis of first carpometacarpal joint, unspecified ==

== ENCOUNTER → 2020-04-11 | Outpatient (CLI) | payer OTHER | LOC: BFHH 09:30 | PROVIDERS: ATTEND Family Medicine | DX: I48.91 Unspecified atrial fibrillation (principal); I50.30 Unspecified diastolic (congestive) heart failure; I13.0 Hypertensive heart and chronic kidney disease with heart failure and stage 1 through stage 4 chronic kidney disease, or unspecified chronic kidney disease; N18.3 Chronic kidney disease, stage 3 (moderate); R31.0 Gross hematuria; R53.1 Weakness ==

== ENCOUNTER → 2020-07-16 | Outpatient (CLI) | payer OTHER | LOC: GMAL 14:44 | PROVIDERS: ATTEND Family Medicine | DX: R30.0 Dysuria (principal) ==

== ENCOUNTER → 2020-10-24 | Outpatient (CLI) | payer OTHER | LOC: GMAL 10:32 | PROVIDERS: ATTEND Family Medicine | DX: Z20.5 Contact with and (suspected) exposure to viral hepatitis (principal); Z79.899 Other long term (current) drug therapy; Z79.01 Long term (current) use of anticoagulants; E11.9 Type 2 diabetes mellitus without complications ==

== ENCOUNTER 2020-12-09 16:27 | Emergency (ER) | payer MEDICARE, OTHER ==
[2020-12-09] MEDS ORDERED: SODIUM CHLORIDE 0.9% (FLUSH) 10 ML SYG IV PRN (16:39)
--- NOTE | 2020-12-09 17:06 | ED.PDOC ---
History of Present Illness - General Chief Complaint: Chest Pain/WI Stated Complaint: chest pressure,HX Afib Time Seen by Provider: 12/09/20 16:34 Source: patient Exam Limitations: no limitations - History of Present Illness Initial Comments: CHEST PRESSURE TODAY (CENTRAL CHEST, RADIATED TO BL SHOULDERS), LASTED FOR 22 MINUTES. ABSENT NOW IN ER. PT STATES HE GETS AFIB EPISODES WHICH ARE TRIGGERED BY HIS PTSD. TODAY HIS PTSD AND PALPITATIONS/CHEST PRESSURE WERE TRIGGERED BY A MOVIE. SINCE IT PERSISTED GREATER THAN 15 MINUTES, HE WAS WORRIED ABOUT AN AFIB EXACERBATION AND THUS CAME TO ER. DENIES CP AND SOB PRESENTLY IN THE ER. H/O AFIB (ON COUMADIN, METOPROLOL), CHF, HTN, NIDDM. Timing/Duration: 1 hour Severity/Quality: moderate, pressure Location: central, shoulder Chest Pain Radiation: shoulders Activities at Onset: emotional stress - AN EMOTIONAL MOVIE Worsening Factors: nothing Nitro Today/Relief: no nitro taken today Associated Symptoms: denies symptoms Allergies/Adverse Reactions: Allergies NO KNOWN ALLERGY Allergy (Verified 05/30/19 17:43) Home Medications: Ambulatory Orders Aspirin [Aspirin Adult Low Dose] 81 mg PO BEDTIME 10/10/18 Metoprolol Tartrate 100 mg PO BID 10/10/18 Multiple Vitamins W/ Minerals [Multivitamin Adults] 1 tab PO DAILY 10/10/18 Potassium Gluconate [Potassium] 2 each PO DAILY 10/10/18 Amlodipine Besylate [Norvasc] 2.5 mg PO DAILY 03/15/19 Doxazosin Mesylate 2 mg PO DAILY 03/15/19 Esomeprazole Magnesium 20 mg PO DAILY 03/15/19 Ferrous Sulfate [Iron] 65 mg PO BEDTIME 03/15/19 Magnesium 250 mg PO DAILY 03/15/19 Warfarin Sodium 5 mg PO BEDTIME 03/15/19 Sitagliptin Phosphate [Januvia] 50 mg PO DAILY 02/20/20 Warfarin Sodium 6 mg PO MOWEFR 12/09/20 Review of Systems - Review of Systems Constitutional: States: no symptoms reported EENTM: States: no symptoms reported Respiratory: Denies: cough, short of breath Cardiology: Denies: chest pain, palpitations Gastrointestinal/Abdominal: States: no symptoms reported Genitourinary: States: no symptoms reported Musculoskeletal: States: no symptoms reported Skin: States: no symptoms reported Neurological: States: no symptoms reported Endocrine: States: no symptoms reported Hematologic/Lymphatic: States: no symptoms reported All other Systems: Reviewed and Negative Past Medical History (General) - Patient Medical History Hx Seizures: No Hx Stroke: No Hx Dementia: No Hx Asthma: No Hx of COPD: No Hx Cardiac Disorders: Yes - Atrial Fib Hx Congestive Heart Failure: No Hx Pacemaker: No Hx Hypertension: Yes Hx Thyroid Disease: No Hx Diabetes: Yes Hx Gastroesophageal Reflux: Yes - GERD Hx Renal Disease: No Hx Cancer: No Hx of HIV: No Hx Hepatitis C: No Hx MRSA: No Surgical History: appendectomy - Vaccination History Hx Tetanus, Diphtheria Vaccination: Yes Hx Influenza Vaccination: No Hx Pneumococcal Vaccination: No - Social History Hx Tobacco Use: No Hx Chewing Tobacco Use: No Hx Alcohol Use: No Hx Substance Use: No Hx Depression: No Hx Physical Abuse: No Hx Emotional Abuse: No Hx Suspected Abuse: No Family Medical History - Family History Father Family History: Unknown Living Status: Physical Exam - Physical Exam General Appearance: Alert, No apparent distress Eyes, Ears, Nose, Throat Exam: PERRL/EOMI, normal ENT inspection Neck: full range of motion, normal inspection Respiratory: chest non-tender, lungs clear, normal breath sounds, no respiratory distress, no accessory muscle use Cardiovascular/Chest: no JVD, no murmur, other - REG RHYTHM, TACHYCARDIC. Peripheral Pulses: radial,right: 2+, radial,left: 2+, dorsalis pedis,right: 1+, dorsalis pedis,left: 1+, posterior tibialis,right: 1+, posterior tibialis,left: 1+ Gastrointestinal/Abdominal: non tender, soft, no organomegaly, no pulsatile mass Extremity: normal inspection, no pedal edema, no calf tenderness Neurologic: no motor/sensory deficits, alert, normal mood/affect, oriented x 3 Skin Exam: normal color, warm/dry Lymphatic: no adenopathy Progress - Results/Orders Results/Orders: BP 215/163. IMPROVED DURING MY P.E. TO 150/107. PULSE 127. IMPROVED DURING MY P.E. TO 92. THUS DID NOT GIVE LOPRESSOR. 93 - 95% RA COVID POS. Pt denies any SOB. PT DECLINED MONOCLONAL ANTIBODY TX. HE REMAINED ASX IN ER AND SATTING WNL ON RA, THUS SAFE FOR DC TO HOME. REMAINING W/U NEG FOR CARDIOPULMONARY CONCERNS: CXR, CBC, CMP, BNP, CARD ENZ X 2. SUBTHERAPEUTIC INR 1.49 FOR AFIB - F/U W/ PCP. SINUS TACHY - RESOLVED IN ER, PULSE 92. Departure - Departure Clinical Impression: COVID-19, Chest pressure, Sinus tachycardia by electrocardiogram, Subtherapeutic international normalized ratio (INR) Disposition: Discharge to Home or Self Care Condition: Good Departure Forms: ED Discharge - Pt. Copy, Patient Portal Self Enrollment Instructions: DI for Chest Pain, Coronavirus Disease 2019 (COVID-19) (DC) Diet: resume usual diet Activity: other - Get plenty of rest. Referrals: Cuauhtemoc Iraheta III, MD [Primary Care Provider] - 1-2 Weeks Home Medications: Ambulatory Orders Aspirin [Aspirin Adult Low Dose] 81 mg PO BEDTIME 10/10/18 Metoprolol Tartrate 100 mg PO BID 10/10/18 Multiple Vitamins W/ Minerals [Multivitamin Adults] 1 tab PO DAILY 10/10/18 Potassium Gluconate [Potassium] 2 each PO DAILY 10/10/18 Amlodipine Besylate [Norvasc] 2.5 mg PO DAILY 03/15/19 Doxazosin Mesylate 2 mg PO DAILY 03/15/19 Esomeprazole Magnesium 20 mg PO DAILY 03/15/19 Ferrous Sulfate [Iron] 65 mg PO BEDTIME 03/15/19 Magnesium 250 mg PO DAILY 03/15/19 Warfarin Sodium 5 mg PO BEDTIME 03/15/19 Sitagliptin Phosphate [Januvia] 50 mg PO DAILY 02/20/20 Warfarin Sodium 6 mg PO MOWEFR 12/09/20 Additional Instructions: You have COVID infection. If you start to have any breathing troubles, please return to the ER or see your regular doctor. Please self-quarantine for 10 days.
--- NOTE | 2020-12-09 17:13 | RAD ---
EXAM DESCRIPTION: Chest,1 View CLINICAL HISTORY: CHEST PRESSURE TODAY. H/O DM, AFIB. COMPARISON: 23 February 2020 TECHNIQUE: AP portable chest FINDINGS: Chronic left-sided volume loss is observed. The heart is within range of normal. The right chest is clear. No pleural fluid is identified. IMPRESSION: Chronic left lung volume loss is observed. I see no acute cardiopulmonary pathology. Electronically signed by: Cuauhtemoc Michel MD 12/09/2020 5:12 PM [facility]
[2020-12-09 21:03] VITALS: BP 171/108; TEMP 97.9; O2SAT 94
== END 2020-12-09 21:03 | disposition home or self-care (01) ==
LOC: ER 16:27
DX: U07.1 COVID-19 (principal); R07.89 Other chest pain; R00.0 Tachycardia, unspecified; R79.1 Abnormal coagulation profile; F43.10 Post-traumatic stress disorder, unspecified; K21.9 Gastro-esophageal reflux disease without esophagitis; E11.9 Type 2 diabetes mellitus without complications; I10 Essential (primary) hypertension; I48.91 Unspecified atrial fibrillation; Z79.01 Long term (current) use of anticoagulants; Z79.899 Other long term (current) drug therapy; Z79.82 Long term (current) use of aspirin